=== PATIENT | female | born 1960 | race Caucasian/White ===

== ENCOUNTER 2017-05-09 19:52 | Inpatient (IN) ==
[2017-05-09] MEDS ORDERED: 0.9 % Sodium Chloride 500 ML IVC ONE (20:08)
[2017-05-09 20:17] LABS: Basophils % 0.1 %; Eosinophils # 0.1 K/mcL (0.0-0.6); Eosinophils % 0.7 %; Hematocrit 42.9 % (35.3-44.9); Hemoglobin 14.2 g/dL (11.5-15.4); Immature Granulocytes % 0.6 % (0-4); Lymphocytes # 0.5 K/mcL (0.6-4.6); Lymphocytes % 2.8 %; Mean Corpuscular HGB Conc 33.1 g/dL (31.6-35.5); Mean Corpuscular Volume 87.6 fL (83.0-100.0); Mean Platelet Volume 9.9 fL (9.4-12.4); Monocytes # 0.8 K/mcL (0.0-1.3); Monocytes % 4.9 %; Neutrophils # 14.7 K/mcL (1.6-8.9); Platelet Count 252 K/mcL (140-400); Red Cell Distribution Width 13.4 % (11.5-14.5); Segmented Neutrophils % 90.9 %
[2017-05-09] MEDS ORDERED: methylPREDNISolone 125 MG/2 ML VIAL IVP ONE (20:23)
[2017-05-09] MEDS ORDERED: Ipratropium/Albuterol Neb 3 ML IH ONE (20:23)
[2017-05-09 20:25] LABS: INR 1.1; Prothrombin Time 12.2 Seconds (9.4-12.1)
--- NOTE | 2017-05-09 20:27 | Emergency Department Note ---
Disposition Clinical Impression: COPD exacerbation Pneumonia Qualifiers: Pneumonia type: due to unspecified organism Laterality: unspecified laterality Lung location: unspecified part of lung Qualified Code(s): J18.9 - Pneumonia, unspecified organism Disposition: Admitted As Inpatient Condition: Good Forms: Work/School Release, ED Satisfaction Letter Time of Disposition: 22:16 General Adult HPI - General Chief complaint: ED General Medical Stated complaint: multiple complaints Time Seen by Provider: 05/09/17 19:55 Source: patient, EMS Limitations: no limitations Nursing Notes Reviewed: Yes Vital Signs Reviewed: Yes - History of Present Illness HPI Narrative: 56 year old female presents to the ED with complaints of fever of 102F at home with chills with a productive cough and nausea without vomitting and states that she was seen here on 05/07 for a left cardiac catherization secondary to ACS symptoms and tachycardia. APtinet states that she has not been around other ill family or friends and states that she is havign increased chest discomfort that radiates into her epigastrium and that the areas that she recieved lovenox shots are starting to pain as well. Ricci states that the cough is a little worse than her baseline cough and that she is long time smoker and quit 5 days ago and that she does feel a bit increased wheezes and has inceased her treatments at home. Pain Scale: 6 - Related Data Home Medications Medication Instructions Recorded Confirmed Albuterol Neb [Proventil Neb] 2.5 mg IH Q6H PRN 05/04/17 05/09/17 Aspirin [Lo-Dose Aspirin EC] 81 mg PO DAILY 05/04/17 05/09/17 Calcium Carbonate/Vitamin D3 1 tab PO DAILY 05/04/17 05/09/17 [Calcium 500+D Tablet Chew] Dapsone 100 mg PO DAILY 05/04/17 05/09/17 Levothyroxine Sodium [Levoxyl] 125 mcg PO DAILY 05/04/17 05/09/17 Loratadine [Claritin] 10 mg PO DAILY 05/04/17 05/09/17 Ranitidine HCl [Heartburn Relief] 150 mg PO BID 05/04/17 05/09/17 predniSONE [PredniSONE] See Taper PO DAILY 05/09/17 05/09/17 Previous Rx's Medication Instructions Recorded Lisinopril [Zestril] 2.5 mg PO DAILY #30 tab 05/07/17 Metoprolol [Lopressor] 25 mg PO BID #60 tab 05/07/17 Nicotine Patch [Nicoderm] 14 mg TD DAILY #28 patch 05/07/17 Nitrofurantoin (BID) [Macrobid] 100 mg PO BIDWM #10 cap 05/07/17 Simvastatin [Zocor] 10 mg PO HS #30 tab 05/07/17 Allergies Allergy/AdvReac Type Severity Reaction Status Date / Time Penicillins Allergy Swelling Verified 07/11/16 04:38 of Lip/Tongue/Throat Sulfa (Sulfonamide Allergy Hives Verified 07/11/16 04:38 Antibiotics) Constitutional: Reports: fever, chills, weakness. Denies: weight change Eyes: Denies: eye pain, eye discharge, vision change ENT ED: Denies: ear pain, throat pain, dental pain, hearing loss, epistaxis, congestion, dysphagia Cardiovascular: Reports: chest pain. Denies: palpitations, dyspnea on exertion , edema, syncope Respiratory: Reports: cough, dyspnea, wheezes, sputum production. Denies: hemoptysis, stridor Gastrointestinal: Denies: abdominal pain, nausea, vomiting, diarrhea, constipation, hematemesis, melena, hematochezia Genitourinary: Denies: dysuria, frequency, hematuria, discharge Musculoskeletal: Denies: back pain, neck pain, arthralgia, myalgia Integumentary: Denies: rash, abrasion, lesions Neurological: Denies: headache, weakness, numbness, paresthesias, confusion, abnormal gait, vertigo Psychiatric: Denies: anxiety, depression, suicidal thoughts, homicidal thoughts , auditory hallucinations, visual hallucinations Endocrine: Denies: fatigue Hematological/Lymphatic: Denies: easy bleeding, easy bruising Allergic/Immunologic: Denies: facial swelling, urticaria Past Medical History - Past Medical History Medical history: Reports: asthma, GERD, hypertension, thyroid disease Surgical history: Reports: , hysterectomy Psychiatric history: Reports: anxiety, panic disorder - Social History Smoking Status: Former smoker Smokeless Tobacco Status: No Alcohol use: Reports: none Drug use: Reports: none Physical Exam - General Limitations: no limitations General appearance: alert, in no apparent distress - Head Head exam: atraumatic, normocephalic, normal inspection - Eye Eye exam: Present: normal appearance, PERRL, EOMI - Expanded Eye Exam Pupils: Left: reactive - ENT ENT exam: normal exam, normal oropharynx, mucous membranes moist - Expanded ENT Exam External ear exam: Present: normal external inspection Mouth exam: Present: normal external inspection Teeth exam: Present: normal inspection Throat exam: Present: normal inspection - Neck Neck exam: Present: normal inspection, full ROM, trachea midline - Chest Chest inspection: Present: normal inspection, symmetric chest wall rise - Respiratory Respiratory exam: Present: wheezes - Cardiovascular Cardiovascular exam: Present: normal rhythm, tachycardia, normal heart sounds - Abdominal Exam Abdominal exam: Present: soft, Non-Tender, other (lovenox ecchymosis on mutliple areas of her abdomen; no active bleeding). Absent: tenderness, distention, guarding, rebound, rigidity - Extremities Exam Extremities exam: Present: normal inspection, full ROM. Absent: tenderness, pedal edema - Expanded Upper Extremity Exam Shoulder exam: Present: normal inspection, full ROM Arm exam: Present: normal inspection, full ROM Elbow exam: Present: normal inspection, full ROM Forearm/Wrist exam: Present: normal inspection, full ROM Hand exam: Present: normal inspection, full ROM Vascular exam: Normal: capillary refill, radial pulse - Expanded Lower Extremity Exam Hip/Pelvis exam: Present: normal inspection, full ROM Upper leg exam: Present: normal inspection, full ROM Knee exam: Present: normal inspection, full ROM Lower leg exam: Present: normal inspection, full ROM Ankle exam: Present: normal inspection, full ROM Foot/toe exam: Present: normal inspection, full ROM Neurovascular/Tendon exam: Absent: motor deficit, sensory deficit, tendon deficit - Back Exam Back exam: Present: normal inspection, full ROM. Absent: tenderness - Neurological Exam Neurological exam: Present: alert, oriented X3 - Expanded Neurological Exam Patient oriented to: Present: person, place, time Coma Scale Eye Opening: Spontaneous Coma Scale Motor Response: Obeys Commands Coma Scale Verbal Response: Oriented Coma Scale Total: 15 - Psychiatric Psychiatric exam: Present: normal affect, normal mood - Skin Skin exam: Present: warm, dry, intact, normal color Course Course Narrative: we will start sepsis workup as my clincal susupicion is that it comes from the pulmonary source, although we will obtain a CTA chest to rue out PE. (+) SIRS with tachycardia and fever - Consultations Consultation #1: discussed case with hospitalist Marina and she accepts patient for admission. Time: 22:15 Vital Signs Temperature 100.0 F H 05/09/17 19:55 Pulse Rate 109 05/09/17 19:55 Respiratory Rate 18 05/09/17 19:55 Blood Pressure 131/75 05/09/17 19:55 O2 Sat by Pulse Oximetry 95 05/09/17 19:55 Temperature 100.0 F H 05/09/17 19:55 Pulse Rate 95 05/09/17 21:48 Respiratory Rate 18 05/09/17 21:48 Blood Pressure 93/52 05/09/17 21:48 O2 Sat by Pulse Oximetry 96 05/09/17 21:48 Oxygen Delivery Oxygen Delivery Room Air Medical Decision Making - Lab Data Result diagrams: 05/09/17 20:06 05/09/17 20:06 Lab Results 05/09/17 05/09/17 05/09/17 Range/Units 20:06 20:06 20:06 WBC (4.3-11.1) K/mcL RBC (3.82-4.97) M/mcL Hgb (11.5-15.4) g/dL Hct (35.3-44.9) % MCV (83.0-100.0) fL MCH (28.0-33.3) pg MCHC (31.6-35.5) g/dL RDW (11.5-14.5) % Plt Count (140-400) K/mcL MPV (9.4-12.4) fL Immature Gran % (0-4) % Seg Neutrophils % % Lymphocytes % % Monocytes % % Eosinophils % % Basophils % % Neutrophils # (1.6-8.9) K/mcL Lymphocytes # (0.6-4.6) K/mcL Monocytes # (0.0-1.3) K/mcL Eosinophils # (0.0-0.6) K/mcL Basophils # (0.0-0.2) K/mcL PT 12.2 H (9.4-12.1) Seconds INR 1.1 APTT 27.3 (26.0-36.0) Seconds Sodium 134 L (136-145) mEq/L Potassium 4.0 (3.5-4.5) mEq/L Chloride 102 (98-109) mEq/L Carbon Dioxide 23 (19-29) mEq/L BUN 18 (7-20) mg/dL Creatinine 0.96 (0.57-1.11) mg/dL Est GFR ( Amer) > 60 (> 60) Est GFR (Non-Af Amer) > 60 (> 60) BUN/Creatinine Ratio 19 (6-26) Glucose 94 (70-99) mg/dL Calculated Osmolality 280 (280-300) Lactic Acid (0.5-2.2) mmol/L Calcium 9.1 (8.6-10.8) mg/dL Phosphorus (2.3-4.7) mg/dL Magnesium (1.6-2.6) mg/dL Total Bilirubin 1.4 H (0.2-1.2) mg/dL Direct Bilirubin 0.7 H (0.0-0.5) mg/dL Indirect Bilirubin 0.7 (0.0-1.2) mg/dL AST 22 (5-34) Units/L ALT 41 (0-55) Units/L Alkaline Phosphatase 116 (38-126) Units/L Troponin I (0-0.03) ng/mL B-Natriuretic Peptide 77 (0-100) pg/mL Serum Total Protein 7.4 (6.0-8.3) g/dL Albumin 3.4 L (3.5-5.0) g/dL Globulin 4.0 H (2.4-3.5) g/dL Albumin/Globulin Ratio 0.9 L (1.1-2.2) Lipase < 10 (8-78) Units/L Urine Color (Yellow) Urine Clarity (Clear) Urine pH (5.0-8.0) pH Units Ur Specific [place] (1.010-1.025) Urine Protein (Neg-Trace) mg/dL Urine Glucose (UA) (Normal) mg/dL Urine Ketones (Negative) mg/dL Urine Blood (Negative) Urine Nitrite (Negative) Urine Bilirubin (Negative) Urine Urobilinogen (Normal) mg/dL Ur Leukocyte Esterase (Negative) Urine Microscopic RBC (0-3) per hpf Urine Microscopic WBC (0-3) per hpf Ur Squamous Epith Cells (None-Few) per lpf Urine Bacteria (None-Few) per hpf Hyaline Casts (None-Few) per lpf Ur Culture Indicated? (NO) 05/09/17 05/09/17 05/09/17 Range/Units 20:06 20:06 20:06 WBC 16.2 H (4.3-11.1) K/mcL RBC 4.90 (3.82-4.97) M/mcL Hgb 14.2 D (11.5-15.4) g/dL Hct 42.9 (35.3-44.9) % MCV 87.6 (83.0-100.0) fL MCH 29.0 (28.0-33.3) pg MCHC 33.1 (31.6-35.5) g/dL RDW 13.4 (11.5-14.5) % Plt Count 252 (140-400) K/mcL MPV 9.9 (9.4-12.4) fL Immature Gran % 0.6 (0-4) % Seg Neutrophils % 90.9 % Lymphocytes % 2.8 % Monocytes % 4.9 % Eosinophils % 0.7 % Basophils % 0.1 % Neutrophils # 14.7 H (1.6-8.9) K/mcL Lymphocytes # 0.5 L (0.6-4.6) K/mcL Monocytes # 0.8 (0.0-1.3) K/mcL Eosinophils # 0.1 (0.0-0.6) K/mcL Basophils # 0.0 (0.0-0.2) K/mcL PT (9.4-12.1) Seconds INR APTT (26.0-36.0) Seconds Sodium (136-145) mEq/L Potassium (3.5-4.5) mEq/L Chloride (98-109) mEq/L Carbon Dioxide (19-29) mEq/L BUN (7-20) mg/dL Creatinine (0.57-1.11) mg/dL Est GFR ( Amer) (> 60) Est GFR (Non-Af Amer) (> 60) BUN/Creatinine Ratio (6-26) Glucose (70-99) mg/dL Calculated Osmolality (280-300) Lactic Acid 1.2 (0.5-2.2) mmol/L Calcium (8.6-10.8) mg/dL Phosphorus (2.3-4.7) mg/dL Magnesium (1.6-2.6) mg/dL Total Bilirubin (0.2-1.2) mg/dL Direct Bilirubin (0.0-0.5) mg/dL Indirect Bilirubin (0.0-1.2) mg/dL AST (5-34) Units/L ALT (0-55) Units/L Alkaline Phosphatase (38-126) Units/L Troponin I 0.01 (0-0.03) ng/mL B-Natriuretic Peptide (0-100) pg/mL Serum Total Protein (6.0-8.3) g/dL Albumin (3.5-5.0) g/dL Globulin (2.4-3.5) g/dL Albumin/Globulin Ratio (1.1-2.2) Lipase (8-78) Units/L Urine Color (Yellow) Urine Clarity (Clear) Urine pH (5.0-8.0) pH Units Ur Specific [place] (1.010-1.025) Urine Protein (Neg-Trace) mg/dL Urine Glucose (UA) (Normal) mg/dL Urine Ketones (Negative) mg/dL Urine Blood (Negative) Urine Nitrite (Negative) Urine Bilirubin (Negative) Urine Urobilinogen (Normal) mg/dL Ur Leukocyte Esterase (Negative) Urine Microscopic RBC (0-3) per hpf Urine Microscopic WBC (0-3) per hpf Ur Squamous Epith Cells (None-Few) per lpf Urine Bacteria (None-Few) per hpf Hyaline Casts (None-Few) per lpf Ur Culture Indicated? (NO) 05/09/17 05/09/17 Range/Units 20:06 21:40 WBC (4.3-11.1) K/mcL RBC (3.82-4.97) M/mcL Hgb (11.5-15.4) g/dL Hct (35.3-44.9) % MCV (83.0-100.0) fL MCH (28.0-33.3) pg MCHC (31.6-35.5) g/dL RDW (11.5-14.5) % Plt Count (140-400) K/mcL MPV (9.4-12.4) fL Immature Gran % (0-4) % Seg Neutrophils % % Lymphocytes % % Monocytes % % Eosinophils % % Basophils % % Neutrophils # (1.6-8.9) K/mcL Lymphocytes # (0.6-4.6) K/mcL Monocytes # (0.0-1.3) K/mcL Eosinophils # (0.0-0.6) K/mcL Basophils # (0.0-0.2) K/mcL PT (9.4-12.1) Seconds INR APTT (26.0-36.0) Seconds Sodium (136-145) mEq/L Potassium (3.5-4.5) mEq/L Chloride (98-109) mEq/L Carbon Dioxide (19-29) mEq/L BUN (7-20) mg/dL Creatinine (0.57-1.11) mg/dL Est GFR ( Amer) (> 60) Est GFR (Non-Af Amer) (> 60) BUN/Creatinine Ratio (6-26) Glucose (70-99) mg/dL Calculated Osmolality (280-300) Lactic Acid (0.5-2.2) mmol/L Calcium (8.6-10.8) mg/dL Phosphorus 3.1 (2.3-4.7) mg/dL Magnesium 1.9 (1.6-2.6) mg/dL Total Bilirubin (0.2-1.2) mg/dL Direct Bilirubin (0.0-0.5) mg/dL Indirect Bilirubin (0.0-1.2) mg/dL AST (5-34) Units/L ALT (0-55) Units/L Alkaline Phosphatase (38-126) Units/L Troponin I (0-0.03) ng/mL B-Natriuretic Peptide (0-100) pg/mL Serum Total Protein (6.0-8.3) g/dL Albumin (3.5-5.0) g/dL Globulin (2.4-3.5) g/dL Albumin/Globulin Ratio (1.1-2.2) Lipase (8-78) Units/L Urine Color Dark Yellow (Yellow) Urine Clarity Clear (Clear) Urine pH 6.0 (5.0-8.0) pH Units Ur Specific [place] > 1.030 H (1.010-1.025) Urine Protein 30 H (Neg-Trace) mg/dL Urine Glucose (UA) Normal (Normal) mg/dL Urine Ketones Negative (Negative) mg/dL Urine Blood Negative (Negative) Urine Nitrite Negative (Negative) Urine Bilirubin Small H (Negative) Urine Urobilinogen Normal (Normal) mg/dL Ur Leukocyte Esterase Negative (Negative) Urine Microscopic RBC 3-5 H (0-3) per hpf Urine Microscopic WBC 5-15 H (0-3) per hpf Ur Squamous Epith Cells Many H (None-Few) per lpf Urine Bacteria None Seen (None-Few) per hpf Hyaline Casts None Seen (None-Few) per lpf Ur Culture Indicated? YES A (NO) - EKG Data EKG #1 EKG attestation: Yes I reviewed and interpreted this EKG. EKG results narrative: sinus tachycardia with rate of 106. NO STEMI. shortened [place] intervals. no change from old ekg of 05/05/17
[2017-05-09 20:28] LABS: Activated Partial Thrombo Time 27.3 Seconds (26.0-36.0)
[2017-05-09] MEDS ORDERED: Levofloxacin 750 MG/150 ML 750 MG/150 ML BAG IVPB ONE (20:30)
[2017-05-09 20:33] LABS: Alanine Aminotransferase 41 Units/L (0-55); Albumin 3.4 g/dL (3.5-5.0); Albumin/Globulin Ratio 0.9 (1.1-2.2); Alkaline Phosphatase 116 Units/L (38-126); Aspartate Amino Transferase 22 Units/L (5-34); BUN/Creatinine Ratio 19 (6-26); Bilirubin,Direct 0.7 mg/dL (0.0-0.5); Bilirubin,Indirect 0.7 mg/dL (0.0-1.2); Bilirubin,Total 1.4 mg/dL (0.2-1.2); Blood Urea Nitrogen 18 mg/dL (7-20); Calcium 9.1 mg/dL (8.6-10.8); Carbon Dioxide 23 mEq/L (19-29); Chloride 102 mEq/L (98-109); Glucose 94 mg/dL (70-99); Lipase < 10 Units/L (8-78); Osmolality,Calculated 280 (280-300); Sodium 134 mEq/L (136-145); Total Protein 7.4 g/dL (6.0-8.3); eGFR For African Americans > 60 (> 60); eGFR For Non-African Americans > 60 (> 60)
[2017-05-09] MEDS: 0.9 % Sodium Chloride 1,000 ML IVC SCH ×2 (20:33→23:25)
[2017-05-09 20:35] LABS: Magnesium 1.9 mg/dL (1.6-2.6); Phosphorous 3.1 mg/dL (2.3-4.7)
[2017-05-09] MEDS ORDERED: Ondansetron 4 MG/2 ML VIAL IVP ONE (20:44)
[2017-05-09 21:47] LABS: Bilirubin,Urine Small (Negative); Blood,Urine Negative (Negative); Clarity,Urine Clear (Clear); Color,Urine Dark Yellow (Yellow); Glucose,Urine (UA) Normal (Normal); Ketones,Urine Negative (Negative); Leukocyte Esterase,Urine Negative (Negative); Nitrite,Urine Negative (Negative); Protein,Urine 30 mg/dL (Neg-Trace); Specific Gravity,Urine > 1.030 (1.010-1.025); Urobilinogen,Urine Normal (Normal)
[2017-05-09 21:49] LABS: Bacteria,Urine None Seen per hpf (None-Few); Squamous Epithelial Cell,Urine Many per lpf (None-Few)
[2017-05-09 22:01] LABS: Hyaline Casts,Urine None Seen per lpf (None-Few)
[2017-05-09] MEDS ORDERED: Ondansetron 4 MG/2 ML VIAL IVP PRN (23:33)
[2017-05-09] MEDS ORDERED: Naloxone 0.4 MG/ML INJ IVP PRN (23:33)
[2017-05-09] MEDS ORDERED: *HR* OxyCODONE Immed Rel 5 MG TABLET PO PRN (23:33)
[2017-05-09] MEDS ORDERED: Albuterol 2.5 MG/3 ML NEBULIZER IH PRN (23:36)
--- NOTE | 2017-05-09 23:42 | Internal Med History&Physical ---
<Mesfin Diaz - Last Filed: 05/10/17 00:43> Date of Encounter: 05/10/17 Time of Encounter: 23:42 Assessment and Plan (1) Fever Current visit: Yes Status: Acute 56 y/o female presents with cc of fever of 102 states she had gradual onset of frontal headache described as pressure like with nausea, photophobia, neck pain, and low back pain denies confusion, GCS 15 negative mayra hawley and marleen recent [facility] [place] 05/07/17: access site right radial artery without erythema or discharge. Pain with palpation Neuro exam nonfocal and nonlateralizing reports 2 weeks of chest congestion and productive cough which has improved denies sick contacts patient treated for UTI on nitrofurantoin wbc [address] abdomen, pelvis negative for any acute changes, no evidence of PE or dissection Lipase WNL etiology: post procedural, UTI, plan: IV ciprofloxacin IVF blood culture, urine culture GI prophylaxis Qualifiers: Fever type: unspecified Qualified Code(s): R50.9 - Fever, unspecified (2) Asthma Current visit: Yes Status: Acute during previous admission patient was treated for asthma exacerbation. She was discharged with predisone taper on 05/07 states she has had productive cough for two weeks and sob. This has improved in the last week not requiring supplemental oxygen. 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 EKG normal sinus rhythm Plan: Continue metoprolol, cardiac telemetry (4) Tobacco abuse Current visit: Yes Status: Resolved Patient states she has decided to quit tobacco smoking. She has quit 5 days ago. Patient was congratulated on this suspicion. Plan: Continue nicotine patch. (5) UTI (urinary tract infection) Current visit: Yes Status: Suspected during previous visit patient diagnosed with uTI and discharged on nitrofurantion x5 days denies dysuria, hematuria, frequency plan: ciprofloxacin Qualifiers: Urinary tract infection type: acute cystitis Hematuria presence: without hematuria Qualified Code(s): N30.00 - Acute cystitis without hematuria (6) Constipation Current visit: Yes Status: Acute patient states she has not had BM for one week CT abdomen pelvis negative for obstruction Plan: docusate 100mg BID prn Qualifiers: Constipation type: other constipation type Qualified Code(s): K59.09 - Other constipation (7) DVT prophylaxis Current visit: Yes Status: Acute Heparin subcutaneous (8) CAD (coronary artery disease) Current visit: Yes Status: Acute denies chest pain recent [facility] [place] 05/07/17 There was a 30% stenosis in the Mid LAD, 50% stenosis in the Mid Circumflex. 50% stenosis in the Mid RCA. EKG sinus tachycardia rate 106 w/o ST elevation or depression trop WNL Plan: She was sent home with asa, statin, and bb. Qualifiers: Coronary Disease-Associated Artery/Lesion type: [place] artery [place] vs. transplanted heart: [place] heart Associated angina: without angina Qualified Code(s): I25.10 - Atherosclerotic heart disease of [place] coronary artery without angina pectoris (9) Headache Current visit: Yes Status: Acute frontal headache with nausea photophobia acute onset w/o mental status changes neuro exam non-focal non lateralizing plan: migraine cocktail Qualifiers: Headache type: tension-type Headache chronicity pattern: acute headache Intractability: not intractable Qualified Code(s): G44.209 - Tension-type headache, unspecified, not intractable Internal Medicine - H&P: HPI Chief complaint: fever History of present illness: Ms. Colunga is a 56 year old female cc of fever. Patient states yesterday she was lying in bed when she had gradual onset of frontal headache, which is pressure-like, nonradiating associated with nausea, photophobia, dull neck pain , weakness. Denied confusion, mental status changes, passing out, vomiting. Patient states she has never had this type of headache before. Denies relieving factors for headache. Thereafter patient started having bilateral lower abdominal pain and low back pain described as dull accompanied by bloating. Patient checked her temperature which was 102 at home. She complained of intense chills requiring multiple blankets. Denies sick contacts. Reports being constipated for the last week and has not had a bowel movement for the last week. Reports for the last 2 weeks she has congestion, productive cough with white sputum which has improved with nebulizer treatments and her recent decision to quit smoking 5 days ago. Patient had a recent left heart catheter at [facility] which she was discharged from on May 07 and was found to have mild coronary artery disease which is managed medically with aspirin, statin, metoprolol. Past Med Surg Social Fam HX - Past Medical History Medical history: asthma, GERD, hypertension, thyroid disease Psychiatric history: anxiety, panic disorder - Past Surgical History Surgical History: , hysterectomy - Social History Smoking Status: Former smoker Smokeless Tobacco Status: No Alcohol use: none Drug use: none - Family History Mother Hx Family Cardiac Disorders: No Hx Family Respiratory Disorders: Yes Father Hx Family Cardiac Disorders: No Internal Medicine - H&P: Meds Albuterol Neb [Proventil Neb] 2.5 mg IH Q6H PRN 05/04/17 [History] Aspirin [Lo-Dose Aspirin EC] 81 mg PO DAILY 05/04/17 [History] Calcium Carbonate/Vitamin D3 [Calcium 500+D Tablet Chew] 1 tab PO DAILY [History] Dapsone 100 mg PO DAILY 05/04/17 [History] Levothyroxine Sodium [Levoxyl] 125 mcg PO DAILY 05/04/17 [History] Loratadine [Claritin] 10 mg PO DAILY 05/04/17 [History] Ranitidine HCl [Heartburn Relief] 150 mg PO BID 05/04/17 [History] Lisinopril [Zestril] 2.5 mg PO DAILY #30 tab 05/07/17 [Rx] Metoprolol [Lopressor] 25 mg PO BID #60 tab 05/07/17 [Rx] Nicotine Patch [Nicoderm] 14 mg TD DAILY #28 patch 05/07/17 [Rx] Nitrofurantoin (BID) [Macrobid] 100 mg PO BIDWM #10 cap 05/07/17 [Rx] Simvastatin [Zocor] 10 mg PO HS #30 tab 05/07/17 [Rx] predniSONE [PredniSONE] See Taper PO DAILY 05/09/17 [History] 3 Allergy/AdvReac Type Severity Reaction Status Date / Time Penicillins Allergy Swelling Verified 07/11/16 04:38 of Lip/Tongue/Throat Sulfa (Sulfonamide Allergy Hives Verified 07/11/16 04:38 Antibiotics) All Systems PM: A 10-system review of systems was performed and is negative for pertinent findings except as documented above in the HPI. Review of systems: Constitutional: Reports fevers, chills, weakness HEENT: Port[place] headache, blurry vision, neck pain. Denies rhinorrhea, sore throat Heart: Denies chest pain and reports palpitations Lungs: Reports shortness of breath, productive cough Abdomen: Ports lower abdominal pain with nausea. Reports constipation. denies vomiting Back: Reports low back pain Kidney: Denies dysuria, hematuria Skin: Denies rash, open wounds or sores Extremities: Denies swelling, pain Neuro: Denies numbness, and tingling - Constitutional Vitals: Temp Pulse Resp BP Pulse Ox 97.5 F L 86 15 124/62 98 05/09/17 23:15 05/09/17 23:15 05/09/17 23:15 05/09/17 23:15 05/09/17 23:15 - Other Additional findings: General: Pleasant female in Moderate distress, diaphoretic HEENT: Head atraumatic, normocephalic, EOMI, PERRLA, absent nuchal rigidity, neck not tender to palpation absent Lymphadenopathy, Moist Mucous Membranes, Heart: Regular rate and rhythm with no murmur Lungs: Bilateral basilar crackles otherwise clear (s/p duoneb treatment) Abdomen: Soft nontender, nondistended positive bowel sounds Extremities: Absent pedal edema, Skin: Absent rash, absent (. Left heart catheter insertion site on right wrist without erythema or discharge but painful with palpation. Back: Nontender to palpation Neuro: Cranial nerves II through XII intact, sensation equal bilaterally, strength upper and lower extremity 5/5, alert oriented 3 Vascular: Pedal and radial pulses 2 out of 4 Internal Med - H&P Results - Labs CBC & Chem 7: 05/09/17 20:06 05/09/17 20:06 <Shantel Wilde - Last Filed: 05/10/17 04:28> Date of Encounter: 05/10/17 Time of Encounter: 01:00 Internal Medicine - H&P: HPI History of present illness: Ms. Colunga is a 56 year old female All Systems PM: A 10-system review of systems was performed and is negative for pertinent findings except as documented above in the HPI. - Constitutional Vitals: Temp Pulse Resp BP Pulse Ox 97.5 F L 86 15 124/62 98 05/09/17 23:15 05/09/17 23:15 05/09/17 23:15 05/09/17 23:15 05/09/17 23:15 Internal Med - H&P Results - Labs CBC & Chem 7: 05/09/17 20:06 05/09/17 20:06 - Attending Attestation I examined this patient and my medical decision-making was reviewed with the Resident Physician. I agree with the documented findings, disposition and treatment plan as described except to the extent set forth below. Ms Colunga is as 56 yo female who presents with SIRS/fever featurses. Reported fever 101 at home, some chills associated. Has central, non-focal belly ache and T-L spine ache with radiation up to the neck. Associated with headache front and back. There were reports of photophobia but she said that she has always been sensitive to light. CTA, CT A/P were unremarkable ROS 14 point review of systems reviewed as best as possible given presentation. Pertinent positive or negative as per HPI or otherwise reviewed as negative General - AAO x 3 Psych - Appropriate affect/speech. No agitation Eyes - DIANNA. Eye lids intact. No scleral icterus Heart - Sinus. RRR. S1 and S2 present. No added HS/murmurs appreciated. No elevated JVD appreciated. Trace edema Lung - Adequate air entry b/l, No crackes/wheezes appreciated GI - Soft, no guarding or rigidity. No hepatosplenomegaly/ascites. BS+ - No CVA/suprapubic tenderness or palpable bladder distension Skin - Intact. No rash/petechiae/ecchymosis. Warm extremities MSK -T/upper L spine back pain Sepsis - empiric IV cipro for now - recently discharge on nitro for empiric UTI - source uncertain. Await blood cx, urine cx - doubt meningitis at current. Will watch for now. If worsen, may consider escalating but she looks stable and w/o nuchal rigidity.K and B signs were negative. Chronic illnesses Asthma WPW Tobacco abuse Constipation
[2017-05-09] MEDS ORDERED: 0.9 % Sodium Chloride 1,000 ML IVC SCH (23:45)
[2017-05-10] MEDS ORDERED: Acetaminophen/Butalbital/CaffeineTABLET PO PRN (00:46)
[2017-05-10] MEDS ORDERED: Vancomycin 1,500 MG in D5% in Water 250 ML IVPB ONE (01:00)
[2017-05-10] MEDS: *HR* Heparin 5,000 UNIT/ML VIAL SQ SCH ×3 (05:00→21:50)
[2017-05-10 05:16] LABS: Basophils % 0.1 %; Hematocrit 36.5 % (35.3-44.9); Immature Granulocytes % 0.4 % (0-4); Lymphocytes # 0.5 K/mcL (0.6-4.6); Lymphocytes % 4.1 %; Mean Corpuscular HGB Conc 32.9 g/dL (31.6-35.5); Mean Corpuscular Hemoglobin 29.1 pg (28.0-33.3); Mean Corpuscular Volume 88.4 fL (83.0-100.0); Mean Platelet Volume 10.3 fL (9.4-12.4); Monocytes # 0.1 K/mcL (0.0-1.3); Monocytes % 0.6 %; Neutrophils # 10.8 K/mcL (1.6-8.9); Platelet Count 237 K/mcL (140-400); Red Blood Count 4.13 M/mcL (3.82-4.97); Red Cell Distribution Width 13.5 % (11.5-14.5); Segmented Neutrophils % 94.8 %
[2017-05-10 05:26] LABS: BUN/Creatinine Ratio 19 (6-26); Blood Urea Nitrogen 18 mg/dL (7-20); Calcium 8.3 mg/dL (8.6-10.8); Carbon Dioxide 20 mEq/L (19-29); Chloride 108 mEq/L (98-109); Glucose 236 mg/dL (70-99); Osmolality,Calculated 294 (280-300); Sodium 137 mEq/L (136-145); eGFR For African Americans > 60 (> 60); eGFR For Non-African Americans > 60 (> 60)
[2017-05-10] MEDS ORDERED: Nitrofurantoin (BID) 100 MG CAPSULE PO SCH (08:00)
[2017-05-10] MEDS: Aspirin Enteric Coated 81 MG Tablet PO SCH (08:27)
[2017-05-10] MEDS: Nicotine 14 MG PATCH.TD24 TD SCH (08:28)
[2017-05-10] MEDS: predniSONE 10 MG TABLET PO SCH (08:28)
[2017-05-10] MEDS ORDERED: Vancomycin 1,500 MG in D5% in Water 250 ML IVPB STA (09:40)
[2017-05-10] MEDS ORDERED: Vancomycin 1,500 MG in D5% in Water 250 ML IVPB SCH ×2 (10:00→21:00)
--- NOTE | 2017-05-10 18:07 | Electrocardiograph Report ---
[place] [id number] Test Date: 2017-05-09 Pat Name: Vivian Colunga Department: 102 Room: 2NE30 Gender: F Quality Assistant: : 1960 Requested By: Denita Roque Order Number: [id number] Reading MD: Grisel Candelaria Measurements Intervals [place] Rate: 108 P: 67 [place]: 84 QRS: -8 QRSD: 100 T: 89 QT: 328 QTc: 392 Interpretive Statements SINUS TACHYCARDIA POSSIBLE LEFT ATRIAL ENLARGEMENT ARTIFACT LIMITS INTERPRETATION Electronically Signed On 05-10-2017 18:05:10 EDT by Grisel Candelaria
--- NOTE | 2017-05-10 18:09 | Electrocardiograph Report ---
[address] [place] [address] Test Date: 2017-05-09 Pat Name: Vivian Colunga Department: 102 Room: 2NE30 Gender: F Gambling Broker: : 1960 Requested By: Lizy Vásquez Order Number: [id number] Reading MD: Grisel Candelaria Measurements Intervals [place] Rate: 106 P: 64 AR: 105 QRS: -11 QRSD: 100 T: 92 QT: 329 QTc: 391 Interpretive Statements SINUS TACHYCARDIA WITH SHORT AR INTERVAL AND WPW PATTERN POSSIBLE INFERIOR MYOCARDIAL INFARCTION, PROBABLY OLD MODERATE T-WAVE ABNORMALITY, CONSIDER LATERAL ISCHEMIA Electronically Signed On 05-10-2017 18:07:36 EDT by Grisel Candelaria
--- NOTE | 2017-05-10 18:25 | Internal Med Progress Note ---
Date of Encounter: 05/10/17 Time of Encounter: 18:23 - Assessment and plan (1) Fever Current Visit: Yes Status: Acute Qualifiers: Fever type: unspecified Qualified Code(s): R50.9 - Fever, unspecified (2) UTI (urinary tract infection) Current Visit: Yes Status: Suspected Qualifiers: Urinary tract infection type: acute cystitis Hematuria presence: without hematuria Qualified Code(s): N30.00 - Acute cystitis without hematuria (3) COPD exacerbation Current Visit: Yes Status: Acute (4) CAD (coronary artery disease) Current Visit: Yes Status: Acute Qualifiers: Coronary Disease-Associated Artery/Lesion type: [place] artery [place] vs. transplanted heart: [place] heart Associated angina: without angina Qualified Code(s): I25.10 - Atherosclerotic heart disease of [place] coronary artery without angina pectoris (5) Headache Current Visit: Yes Status: Acute Qualifiers: Headache type: tension-type Headache chronicity pattern: acute headache Intractability: not intractable Qualified Code(s): G44.209 - Tension-type headache, unspecified, not intractable - Subjective Interval history: Mrs. Vivian booth was recently discharged from hospital. She was treated for UTI and was sent home on Macrobid. She has recently quit smoking and to has developed cough with whitish phlegm. Patient had a recent left heart catheter at [place] which she was discharged from on May 07 and was found to have mild coronary artery disease which is managed medically with aspirin, statin, metoprolol. She was presented with fever and headache neck pain and photophobia but for some reason admitting team did not do lumbar puncture. She has been started on IV Cipro. I have added vancomycin but since she had anaphylaxis to penicillins I could not add cephalosporin or meropenem. I guess her next choice is Avelox but have decided to consult infectious disease to see if neurological etiologies worked pursuing. Clinically she is quite unremarkable and does not have any signs of meningismus. I have asked her to use albuterol inhaler on regular basis now. - Constitutional Vitals: Temp Pulse Resp BP Pulse Ox 98.3 F 73 18 121/73 97 05/10/17 15:00 05/10/17 15:00 05/10/17 15:00 05/10/17 15:00 05/10/17 15:00 - Head Head exam: Present: atraumatic, normocephalic - Eye Eye exam: Present: PERRL, conjuntiva pink, sclera anicteric Pupils: Present: PERRL - Neck Neck exam general surgery: Present: supple, trachea midline. Absent: lymphadenopathy - Respiratory Respiratory exam: Present: CTAB. Absent: accessory muscle use, rales, rhonchi, wheezes - Cardiovascular Cardiovascular exam: Present: RRR, +S1, +S2. Absent: diastolic murmur, gallop, rubs, systolic murmur - GI/Abdominal GI/Abdominal exam: Present: normal bowel sounds, soft, no peritoneal signs. Absent: distended, tenderness - Extremities Exam Extremities exam: Present: warm, radial pulses palpable and symmetrical. Absent : calf tenderness, cyanotic, pedal edema - Neurological Exam Neurological exam: Present: CN II-XII intact, oriented X3, no focal deficits. Absent: pronater drift, facial droop, speech deficit - Skin Skin exam: Present: dry, intact Internal Medicine: Result - Labs CBC & Chem 7: 05/10/17 04:43 05/10/17 04:43 Labs: Short CBC 05/10/17 Range/Units 04:43 WBC 11.4 H (4.3-11.1) K/mcL Hgb 12.0 D (11.5-15.4) g/dL Hct 36.5 (35.3-44.9) % Plt Count 237 (140-400) K/mcL Neutrophils # 10.8 H (1.6-8.9) K/mcL BMP 05/10/17 04:43 Sodium 137 Potassium 4.0 Chloride 108 Carbon Dioxide 20 BUN 18 Creatinine 0.96 Glucose 236 H Calcium 8.3 L - ABG Interpretation ABG results: PT/INR, D-dimer PT 12.2 Seconds (9.4-12.1) H 05/09/17 20:06 Consult Discharge Plan - Plan Referrals: Erin Sumner DO [Resident] - 05/17/17 10:20 am
[2017-05-11] MEDS: *HR* Heparin 5,000 UNIT/ML VIAL SQ SCH ×2 (05:52→16:49)
--- NOTE | 2017-05-11 09:27 | Internal Med Progress Note ---
Date of Encounter: 05/11/17 Time of Encounter: 09:24 - Assessment and plan (1) Meningismus Current Visit: Yes Status: Acute Assessment and plan: Suspected meningitis versus meningismus. Patient has a history of 3 weeks of change in her voice, difficulty swallowing solid food items, sore throat, cough. She reports neck stiffness. However, no neck stiffness on examination. Kernig' s and Brudzinski's signs are negative. Suspect the patient may have a retropharyngeal abscess or pharyngitis as a cause of her meningismus. We will obtain a CT scan of the neck soft tissues with contrast stat. If the CT scan of the neck is negative, will obtain lumbar puncture by interventional radiology. It seems that there is no infectious disease coverage available. We will discontinue ID consult. Continue current antibiotics for now. Further antibiotic therapy and management to depend on the results of CT scan of the neck. Patient is high risk due to possible meningitis or retropharyngeal abscess which may require surgical intervention and/or intravenous antibody therapy. 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 (3) Hypertension Current Visit: Yes Status: Chronic Assessment and plan: Controlled blood pressure. Continue current medications. Qualifiers: Hypertension type: essential hypertension Qualified Code(s): I10 - Essential (primary) hypertension (4) Tobacco abuse Current Visit: Yes Status: Resolved - Subjective Interval history: 56 yo CF presents due to frontal headache, neck stiffness and fever of 101.5 F. Patient states that she has had difficulty swallowing solid food items over the past 3 weeks. She also reports a sore throat. She states that she has had cough with chest congestion over the past 3 weeks. With excessive coughing, she developed chest pain. She presented to the hospital last week for this complaint. She underwent left heart catheterization at that time. She was discharged on Sunday. She returned back to the hospital on Sunday due to fever of 101.5 degrees Fahrenheit. She states that she woke up in a pool of sweat before coming to the hospital. She also reported a headache on the front of her face, nose and both her eyes. She attributed this headache to her allergies. However, she states that her headaches are not usually accompanied by fevers. She also reports photophobia. She does report light sensitivity that occurs with her headache episodes. Currently, she denies any weakness in her arms or legs. She denies any history of seizures. She lives with her son who is 26 years old. She denies any sick contacts at home. She reports some nausea but denies any further vomiting. She continues to report chills which have been at night and which she had last night. She denies any double vision or blurry vision. Denies any diarrhea. She does report a change in her voice and states that her voice is hoarse. - Constitutional Vitals: Temp Pulse Resp BP Pulse Ox 98.1 F 72 15 131/79 96 05/11/17 06:53 05/11/17 06:53 05/11/17 06:53 05/11/17 06:53 05/11/17 06:53 Exam: Gen.: Lying in bed. Mild distress. Eyes: Pupils equal, round and reactive to light. Extraocular muscles intact. ENT: Moist mucous membranes. No oropharyngeal erythema or discharge. Chest: Clear to auscultation bilaterally. No adventitious sounds present. CVS: First and second heart sounds present. Regular rate and rhythm. Ejection systolic murmur present in the aortic area. Abdomen: Soft, nontender, obese. Bowel sounds present. No hepatosplenomegaly. Skin: No decubitus ulcers appreciated. SERVICE CLERK: No focal neuro deficits present. No neck stiffness. Kernig's and Brudzinski's signs are negative. Bilateral neck muscle stiffness is present. Internal Medicine: Result - Labs CBC & Chem 7: 05/10/17 04:43 05/10/17 04:43 - ABG Interpretation ABG results: PT/INR, D-dimer PT 12.2 Seconds (9.4-12.1) H 05/09/17 20:06 Consult Discharge Plan - Plan Referrals: Erin Sumner DO [Resident] - 05/17/17 10:20 am
[2017-05-11] MEDS: Aspirin Enteric Coated 81 MG Tablet PO SCH (11:22)
[2017-05-11] MEDS: predniSONE 10 MG TABLET PO SCH (11:22)
[2017-05-11] MEDS: Nicotine 14 MG PATCH.TD24 TD SCH (11:23)
[2017-05-11] MEDS ORDERED: diazePAM 5 MG TABLET PO ONE (12:04)
[2017-05-11 13:44] LABS: Red Blood Cell,CSF < 0.002 M/mcL
[2017-05-11 13:46] LABS: Appearance,CSF Clear (Clear)
[2017-05-11 14:08] LABS: Glucose,CSF 70 mg/dL (40-70); Total Protein,CSF 24 mg/dL (15-45)
[2017-05-11] MEDS ORDERED: Aminoglycoside Consult 1 EACH MC ONE (16:30)
[2017-05-12 03:22] LABS: Basophils % 0.2 %; Eosinophils # 0.1 K/mcL (0.0-0.6); Eosinophils % 0.6 %; Hematocrit 33.8 % (35.3-44.9); Immature Granulocytes % 0.3 % (0-4); Lymphocytes # 3.4 K/mcL (0.6-4.6); Lymphocytes % 31.1 %; Mean Corpuscular HGB Conc 32.5 g/dL (31.6-35.5); Mean Corpuscular Hemoglobin 29.6 pg (28.0-33.3); Mean Corpuscular Volume 90.9 fL (83.0-100.0); Mean Platelet Volume 10.6 fL (9.4-12.4); Monocytes # 0.8 K/mcL (0.0-1.3); Monocytes % 7.1 %; Neutrophils # 6.6 K/mcL (1.6-8.9); Platelet Count 246 K/mcL (140-400); Red Blood Count 3.72 M/mcL (3.82-4.97); Segmented Neutrophils % 60.7 %
[2017-05-12 03:34] LABS: Alanine Aminotransferase 88 Units/L (0-55); Albumin/Globulin Ratio 0.8 (1.1-2.2); Alkaline Phosphatase 97 Units/L (38-126); Aspartate Amino Transferase 44 Units/L (5-34); BUN/Creatinine Ratio 25 (6-26); Bilirubin,Total 0.4 mg/dL (0.2-1.2); Blood Urea Nitrogen 24 mg/dL (7-20); Calcium 8.6 mg/dL (8.6-10.8); Carbon Dioxide 26 mEq/L (19-29); Chloride 109 mEq/L (98-109); Globulin 3.2 g/dL (2.4-3.5); Glucose 104 mg/dL (70-99); Osmolality,Calculated 294 (280-300); Potassium 4.4 mEq/L (3.5-4.5); Sodium 140 mEq/L (136-145); eGFR For African Americans > 60 (> 60); eGFR For Non-African Americans > 60 (> 60)
[2017-05-12 03:35] LABS: Albumin 2.7 g/dL (3.5-5.0); Total Protein 5.9 g/dL (6.0-8.3)
[2017-05-12] MEDS: Aspirin Enteric Coated 81 MG Tablet PO SCH (09:56)
[2017-05-12] MEDS: predniSONE 10 MG TABLET PO SCH (09:57)
[2017-05-12] MEDS: Nicotine 14 MG PATCH.TD24 TD SCH (09:57)
--- NOTE | 2017-05-12 13:28 | Internal Med Progress Note ---
Date of Encounter: 05/12/17 Time of Encounter: 12:45 - Assessment and plan (1) Meningismus Current Visit: Yes Status: Resolved Assessment and plan: CT scan of the neck with contrast was negative for any retropharyngeal abscess. Lumbar punch was performed yesterday and the CSF fluid analysis is not consistent with viral or bacterial meningitis. Antibiotics have been discontinued. We will continue to monitor the patient for 24 more hours off antibiotics. If the patient continues to do well, likely discharge home tomorrow. We will provide referral for outpatient rheumatology if the patient is discharged tomorrow as there is a suspicion for systemic lupus. ALBERT and complements have been obtained yesterday. (2) WPW (Llqrf-Unpbjizqo-Pghhn syndrome) Current Visit: Yes Status: Chronic Assessment and plan: Stable. (3) Hypertension Current Visit: Yes Status: Chronic Assessment and plan: Stable blood pressure. Continue current medications. Qualifiers: Hypertension type: essential hypertension Qualified Code(s): I10 - Essential (primary) hypertension (4) Tobacco abuse Current Visit: Yes Status: Resolved - Subjective Interval history: Patient states that she is doing well. She has not had any chills overnight. Denies any headache episodes. Denies any nausea or vomiting. She is eager to be discharged home. - Constitutional Vitals: Temp Pulse Resp BP Pulse Ox 98.5 F 81 16 121/73 94 05/12/17 08:42 05/12/17 08:42 05/12/17 08:42 05/12/17 08:42 05/12/17 08:42 Exam: Gen.: Lying in bed. No acute distress. Chest: Clear to auscultation bilaterally. No adventitious sounds present. CVS: First and second heart sounds present. No murmurs, rubs or gallops. Abdomen: Soft, nontender, nondistended. Bowel sounds present. No hepatosplenomegaly. Internal Medicine: Result - Labs CBC & Chem 7: 05/12/17 03:04 05/12/17 03:04 Labs: Short CBC 05/12/17 Range/Units 03:04 WBC 10.8 (4.3-11.1) K/mcL Hgb 11.0 L (11.5-15.4) g/dL Hct 33.8 L (35.3-44.9) % Plt Count 246 (140-400) K/mcL Neutrophils # 6.6 (1.6-8.9) K/mcL BMP 05/12/17 03:04 Sodium 140 Potassium 4.4 Chloride 109 Carbon Dioxide 26 BUN 24 H Creatinine 0.96 Glucose 104 H Calcium 8.6 Liver Function 05/12/17 Range/Units 03:04 Total Bilirubin 0.4 (0.2-1.2) mg/dL AST 44 H (5-34) Units/L ALT 88 H (0-55) Units/L Alkaline Phosphatase 97 (38-126) Units/L Albumin 2.7 L D (3.5-5.0) g/dL - ABG Interpretation ABG results: PT/INR, D-dimer PT 12.2 Seconds (9.4-12.1) H 05/09/17 20:06 - Impressions Impressions Lumbar Puncture Fluoroscopy 05/11/17 11:04 IMPRESSION: Successful fluoroscopic-guided lumbar puncture. D/ / 05/11/2017 13:51:23 Kirby Drew MD / Tracey Jean-Baptiste Interpreting Provider: Kirby Drew MD Consult Discharge Plan - Plan Referrals: Erin Sumner DO [Resident] - 05/17/17 10:20 am
[2017-05-12] MEDS: *HR* Heparin 5,000 UNIT/ML VIAL SQ SCH ×2 (14:15→20:12)
[2017-05-13] MEDS: Acetaminophen 325 MG TABLET PO PRN ×2 (02:36→10:11)
[2017-05-13 04:08] LABS: Basophils % 0.1 %; Eosinophils # 0.1 K/mcL (0.0-0.6); Eosinophils % 0.6 %; Hemoglobin 11.3 g/dL (11.5-15.4); Immature Granulocytes % 0.4 % (0-4); Lymphocytes # 4.3 K/mcL (0.6-4.6); Lymphocytes % 29.6 %; Mean Corpuscular HGB Conc 31.4 g/dL (31.6-35.5); Mean Corpuscular Hemoglobin 28.3 pg (28.0-33.3); Mean Platelet Volume 10.7 fL (9.4-12.4); Monocytes # 0.9 K/mcL (0.0-1.3); Neutrophils # 9.2 K/mcL (1.6-8.9); Platelet Count 288 K/mcL (140-400); Red Cell Distribution Width 13.7 % (11.5-14.5); Segmented Neutrophils % 63.3 %
[2017-05-13 04:22] LABS: Alanine Aminotransferase 64 Units/L (0-55); Albumin 2.8 g/dL (3.5-5.0); Albumin/Globulin Ratio 0.9 (1.1-2.2); Alkaline Phosphatase 95 Units/L (38-126); Aspartate Amino Transferase 20 Units/L (5-34); BUN/Creatinine Ratio 21 (6-26); Blood Urea Nitrogen 17 mg/dL (7-20); Calcium 8.6 mg/dL (8.6-10.8); Carbon Dioxide 24 mEq/L (19-29); Chloride 107 mEq/L (98-109); Globulin 3.1 g/dL (2.4-3.5); Glucose 88 mg/dL (70-99); Osmolality,Calculated 289 (280-300); Sodium 139 mEq/L (136-145); Total Protein 5.9 g/dL (6.0-8.3); eGFR For African Americans > 60 (> 60); eGFR For Non-African Americans > 60 (> 60)
[2017-05-13 04:23] LABS: Bilirubin,Total 0.8 mg/dL (0.2-1.2)
[2017-05-13] MEDS: *HR* Heparin 5,000 UNIT/ML VIAL SQ SCH (04:49)
[2017-05-13 07:10] VITALS: BP 104/56
[2017-05-13] MEDS: Aspirin Enteric Coated 81 MG Tablet PO SCH (10:10)
[2017-05-13] MEDS: predniSONE 10 MG TABLET PO SCH (10:10)
[2017-05-13] MEDS: Nicotine 14 MG PATCH.TD24 TD SCH (10:11)
--- NOTE | 2017-05-13 13:30 | Discharge Summary ---
Date of Encounter: 05/13/17 Time of Encounter: 13:30 - Discharge Diagnosis (1) Meningismus Priority: Primary Status: Ruled-out (2) WPW (Zyjwo-Yzpupdcwk-Xzkyg syndrome) Priority: Secondary Status: Chronic (3) Hypertension Priority: Secondary Status: Chronic Qualifiers: Hypertension type: essential hypertension Qualified Code(s): I10 - Essential (primary) hypertension (4) Tobacco abuse Priority: Secondary Status: Chronic - Discharge Medications Prescriptions: Levofloxacin [Levaquin] 750 mg PO DAILY #5 tablet Omeprazole [PriLOSEC] 20 mg PO DAILY@0630 #10 Home Medications: Albuterol Neb [Proventil Neb] 2.5 mg IH Q6H PRN 05/04/17 [History] Aspirin [Lo-Dose Aspirin EC] 81 mg PO DAILY 05/04/17 [History] Calcium Carbonate/Vitamin D3 [Calcium 500+D Tablet Chew] 1 tab PO DAILY [History] Dapsone 100 mg PO DAILY 05/04/17 [History] Levothyroxine Sodium [Levoxyl] 125 mcg PO DAILY 05/04/17 [History] Loratadine [Claritin] 10 mg PO DAILY 05/04/17 [History] Ranitidine HCl [Heartburn Relief] 150 mg PO BID 05/04/17 [History] Lisinopril [Zestril] 2.5 mg PO DAILY #30 tab 05/07/17 [Rx] Metoprolol [Lopressor] 25 mg PO BID #60 tab 05/07/17 [Rx] Nicotine Patch [Nicoderm] 14 mg TD DAILY #28 patch 05/07/17 [Rx] Simvastatin [Zocor] 10 mg PO HS #30 tab 05/07/17 [Rx] predniSONE [PredniSONE] See Taper PO DAILY 05/09/17 [History] Levofloxacin [Levaquin] 750 mg PO DAILY #5 tablet 05/13/17 [Rx] Omeprazole [PriLOSEC] 20 mg PO DAILY@0630 #10 05/13/17 [Rx] Allergies/Adverse Reactions: 3 Allergy/AdvReac Type Severity Reaction Status Date / Time Penicillins Allergy Swelling Verified 07/11/16 04:38 of Lip/Tongue/Throat Sulfa (Sulfonamide Allergy Hives Verified 07/11/16 04:38 Antibiotics) Procedures/tests Complete & Pending: Procedures Performed prior 72 hours Category Date Time Status CT soft tissue neck w con [CT] Stat Cat Scan 05/11/17 09:22 Completed Date of admission: 05/10/17 00:43 Primary care physician: PCP NONE Discharging clinician: Bruce Morelos Anticipated date of discharge: 05/13/17 - Patient Status Disposition: Home, Self-Care Condition: Good Functional capacity at discharge: independent ambulation Overall status at discharge: patient is back to baseline - Discharge Instructions Follow Up With: Vargas Barron DO [Partnered Physician] - (1-2 weeks) Erin Sumner DO [Resident] - 05/17/17 10:20 am - Diet and Activity Activity: increase activity as tolerated, resume usual activities as tolerated Diet: advance to your usual diet Hospital course: Ms. Colunga is a 56 year old female who presented to the ER due to fever and neck stiffness and headache with some photophobia. She was admitted with a presumed diagnosis of meningitis vs meningismus. She was complaining of sore throat and neck stiffness, a CT of the soft tissue of the neck was performed to evaluate for any retropharyngeal abscess. Neck CT scan did not reveal any abnormality. Hence, she underwent lumbar posture by interventional radiology. Her CSF analysis did not reveal any evidence of viral or bacterial infection. The patient was monitored off antibiotics for 2 days and did not have any fevers. 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 Due to suspicion of systemic lupus, ALBERT, complement levels and urinalysis for proteinuria have been obtained. Urinalysis revealed proteinuria. Serological testing is currently pending at the time of discharge. As the patient is doing well, she has been deemed stable to be discharged home with outpatient follow- up with rheumatology. - Time Spent with Patient Total time spent providing and/or coordinating discharge services: Greater than 30 minutes (40 min) - Constitutional Vitals: Temp Pulse Resp BP Pulse Ox 98.5 F 93 18 104/56 97 05/13/17 07:00 05/13/17 07:00 05/13/17 07:00 05/13/17 07:00 05/13/17 07:00 Exam: Gen.: Lying in bed. No acute distress. Chest: Clear to auscultation bilaterally. No adventitious sounds present. CVS: First and second heart sounds present. No murmurs, rubs or gallops. Abdomen: Soft, nontender, obese. Bowel sounds present. No hepatosplenomegaly. Skin: No decubitus ulcers appreciated.
[2017-05-14 07:58] LABS: Complement Component 3 162 mg/dL (88-201)
[2017-05-14 07:59] LABS: ANA IgG by ELISA NONE DETECTED (None Detected); Complement Component 4 31 mg/dL (10-40)
[2017-05-15 08:06] LABS: HSV 1 Glycoprotein G IgG CSF 0.25 IV (<=0.89); HSV 2 Glycoprotein G IgG CSF 0.01 IV (<=0.89)
== END 2017-05-13 16:31 | disposition home or self-care (01) | DRG 720 ==
LOC: 2NENU 19:52 → EMEROO 19:52 → 2NENU 22:52 → SUATTDRO 05-10 00:43
PROVIDERS: ADMIT Internal Medicine Hematology & Oncology; ATTEND Internal Medicine Sleep Medicine

== ENCOUNTER 2017-08-04 19:51 | Observation (INO) ==
[2017-08-04] MEDS ORDERED: *HR* Morphine 2 MG/ML SYRINGE IVP ONE (20:23)
--- NOTE | 2017-08-04 20:37 | Emergency Department Note ---
Disposition Clinical Impression: Chest pain Qualifiers: Chest pain type: unspecified Qualified Code(s): R07.9 - Chest pain, unspecified Disposition: Admitted As Inpatient Condition: Fair Time of Disposition: 22:10 Chest Pain HPI - General Chief Complaint: ED Chest Pain Stated Complaint: had heart ablasion last week having chest pain Source: patient Limitations: no limitations Vital Signs Reviewed: Yes Nursing Notes Reviewed: Yes - History of Present Illness HPI Narrative: 57-year-old female past medical history of recent cardiac ablation 3 days ago for Ohegl-Nzvgoldlx-Cawqm syndrome presents to the emergency department with sharp chest pain and shorntess of breath that started 6 hours ago. Patient states that she has had soreness in her chest past few days, but never had any pain like this. Severity scale (1-10): 7 - Related Data Home Medications Medication Instructions Recorded Confirmed Aspirin [Lo-Dose Aspirin EC] 81 mg PO DAILY 05/04/17 08/04/17 Dapsone 100 mg PO DAILY 05/04/17 08/04/17 Levothyroxine Sodium [Levoxyl] 125 mcg PO DAILY 05/04/17 08/04/17 Previous Rx's Medication Instructions Recorded Lisinopril [Zestril] 2.5 mg PO DAILY #30 tab 05/07/17 Metoprolol [Lopressor] 25 mg PO BID #60 tab 05/07/17 Simvastatin [Zocor] 10 mg PO HS #30 tab 05/07/17 Omeprazole [PriLOSEC] 20 mg PO DAILY@0630 #10 05/13/17 Allergies Allergy/AdvReac Type Severity Reaction Status Date / Time Penicillins Allergy Swelling Verified 07/11/16 04:38 of Lip/Tongue/Throat Sulfa (Sulfonamide Allergy Hives Verified 07/11/16 04:38 Antibiotics) All systems ED: reviewed and negative except as stated. Review of Systems: As Per HPI Constitutional: Denies: fever Cardiovascular: Reports: chest pain. Denies: palpitations, syncope Respiratory: Reports: dyspnea. Denies: cough Gastrointestinal: Denies: nausea, vomiting Musculoskeletal: Denies: back pain Chest Pain PMH - Past Medical History Medical history: Reports: asthma, GERD, hypertension, thyroid disease Surgical history: Reports: , hysterectomy Psychiatric history: Reports: anxiety, panic disorder - Social History Smoking Status: Former smoker Alcohol use: Reports: none Drug use: Reports: none Physical Exam General: A 57-year-old female who appears to be in mild discomfort Head: autraumatic, EOMI, no conjuncitval pallor, no scleral icterus, Mouth: oral mucous membranes moist Neck: neck soft, trachea midline Chest:: Equal chest wall rise Lungs: Normal lungs sounds bilaterally, no wheezes, no respiratory distress Heart: normal heart sounds, normal rate and rhythm, Abdomen: soft, non-tender, no rigidity, no guarding, no rebdound tenderness Lower Extremities: no pedal edema, calves non-tender Integumentary: Skin warm, dry, and intact Neuro: Alert Psych: normal affect, normal mood - General Limitations: no limitations General appearance: alert, in no apparent distress Course Vital Signs Temperature 98.1 F 08/04/17 19:57 Pulse Rate 86 08/04/17 19:57 Respiratory Rate 20 08/04/17 19:57 Blood Pressure 136/85 08/04/17 19:57 O2 Sat by Pulse Oximetry 98 08/04/17 19:57 Temperature 98.4 F 08/04/17 23:07 Pulse Rate 95 08/05/17 04:13 Respiratory Rate 16 08/05/17 04:13 Blood Pressure 115/68 08/05/17 04:13 O2 Sat by Pulse Oximetry 97 08/05/17 04:13 Oxygen Delivery Oxygen Delivery Room Air Chest Pain - MDM Narrative Medical decision making narrative: 57-year-old female since in the emergency department with chest pain that is worsening 3 days post 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 Electrocardiogram does not reveal any ischemic ST changes. Chest x- ray does not reveal any cardiopulmonary disease. Troponin is elevated at 0.18. I suspect that this is secondary to her recent ablation and not from any new ischemic event. I spoke to the car worker helper bonded structures repairer Dr. Bond regarding further recommendations for this patient. She recommended that we keep the patient overnight to trend her troponin. Patient is currently not in any chest pain after administration of morphine. I discussed the plan with the patient and her son as far as keeping her. She was okay with with staying the night. Patient was admitted to the hospitalist who accepted her. Vital Signs Temperature 98.1 F 08/04/17 19:57 Pulse Rate 86 08/04/17 19:57 Respiratory Rate 20 08/04/17 19:57 Blood Pressure 136/85 08/04/17 19:57 O2 Sat by Pulse Oximetry 98 08/04/17 19:57 Temperature 98.1 F 08/04/17 19:57 Pulse Rate 78 08/04/17 21:25 Respiratory Rate 16 08/04/17 21:25 Blood Pressure 127/72 08/04/17 21:25 O2 Sat by Pulse Oximetry 95 08/04/17 21:25 Oxygen Delivery Oxygen Delivery Room Air Chest X-Ray 08/04/17 20:21 IMPRESSION: No acute cardiopulmonary disease. D/ / Shawn Shin MD / Shawn Shin MD Interpreting Provider: Shawn Shin MD - Medical Records Medical records reviewed: Yes I reviewed the patient's medical records. - Lab Data Lab results reviewed: Yes I reviewed the patient's lab results. Result diagrams: 08/05/17 01:49 08/05/17 01:49 Lab Results 08/04/17 08/04/17 08/04/17 Range/Units 20:29 20:29 20:29 WBC 6.7 (4.3-11.1) K/mcL RBC 3.77 L (3.82-4.97) M/mcL Hgb 11.1 L (11.5-15.4) g/dL Hct 35.5 (35.3-44.9) % MCV 94.2 (83.0-100.0) fL MCH 29.4 (28.0-33.3) pg MCHC 31.3 L (31.6-35.5) g/dL RDW 13.8 (11.5-14.5) % Plt Count 262 (140-400) K/mcL MPV 10.2 (9.4-12.4) fL Immature Gran % 0.1 (0-4) % Seg Neutrophils % 46.8 % Lymphocytes % 43.2 % Monocytes % 9.2 % Eosinophils % 0.0 % Basophils % 0.7 % Neutrophils # 3.2 (1.6-8.9) K/mcL Lymphocytes # 2.9 (0.6-4.6) K/mcL Monocytes # 0.6 (0.0-1.3) K/mcL Eosinophils # 0.0 (0.0-0.6) K/mcL Basophils # 0.1 (0.0-0.2) K/mcL Sodium 141 (136-145) mEq/L Potassium 4.4 (3.5-4.5) mEq/L Chloride 107 (98-109) mEq/L Carbon Dioxide 28 (19-29) mEq/L BUN 14 (7-20) mg/dL Creatinine 0.90 (0.57-1.11) mg/dL Est GFR ( Amer) > 60 (> 60) Est GFR (Non-Af Amer) > 60 (> 60) BUN/Creatinine Ratio 16 (6-26) Glucose 80 (70-99) mg/dL Calculated Osmolality 291 (280-300) Calcium 9.4 (8.6-10.8) mg/dL Troponin I (0-0.03) ng/mL B-Natriuretic Peptide 60 (0-100) pg/mL 08/04/ Range/Units 20:29 WBC (4.3-11.1) K/mcL RBC (3.82-4.97) M/mcL Hgb (11.5-15.4) g/dL Hct (35.3-44.9) % MCV (83.0-100.0) fL MCH (28.0-33.3) pg MCHC (31.6-35.5) g/dL RDW (11.5-14.5) % Plt Count (140-400) K/mcL MPV (9.4-12.4) fL Immature Gran % (0-4) % Seg Neutrophils % % Lymphocytes % % Monocytes % % Eosinophils % % Basophils % % Neutrophils # (1.6-8.9) K/mcL Lymphocytes # (0.6-4.6) K/mcL Monocytes # (0.0-1.3) K/mcL Eosinophils # (0.0-0.6) K/mcL Basophils # (0.0-0.2) K/mcL Sodium (136-145) mEq/L Potassium (3.5-4.5) mEq/L Chloride (98-109) mEq/L Carbon Dioxide (19-29) mEq/L BUN (7-20) mg/dL Creatinine (0.57-1.11) mg/dL Est GFR ( Amer) (> 60) Est GFR (Non-Af Amer) (> 60) BUN/Creatinine Ratio (6-26) Glucose (70-99) mg/dL Calculated Osmolality (280-300) Calcium (8.6-10.8) mg/dL Troponin I 0.18 H* (0-0.03) ng/mL B-Natriuretic Peptide (0-100) pg/mL - Radiology Data Radiology results reviewed: Yes I reviewed the patient's radiology results. - EKG Data EKG attestation: Yes I reviewed and interpreted this EKG. EKG results narrative: 20:09 Ventricular rate 83 bpm, NH interval 141 ms, QRS duration 99 ms, QT 368 ms, QTC 408 ms, normal axis. Sinus rhythm with a ventricular rate of 83 bpm there is no evidence of any ischemic ST changes noted when in comparison with her previous electric cardiogram performed on August 02, 2017. Attestation Statement - Attestation Attestation: I examined this patient and my medical decision-making was reviewed with the Resident Physician. I agree with the documented findings, disposition and treatment plan as described except to the extent set forth below. Patient eating playing a sharp substernal chest pain. Patient status post cardiac ablation on with Dr. Garza. She is nontoxic appearing on examination. Her lungs are clear. Heart regular. Plan. No ischemic changes on EKG. No ectopy on the monitor. Bedside ultrasound does not show an obvious pericardial effusion. Troponin is elevated at 0.18. Will discuss with cardiology.
[2017-08-04 20:46] LABS: Basophils # 0.1 K/mcL (0.0-0.2); Basophils % 0.7 %; Hematocrit 35.5 % (35.3-44.9); Hemoglobin 11.1 g/dL (11.5-15.4); Immature Granulocytes % 0.1 % (0-4); Lymphocytes # 2.9 K/mcL (0.6-4.6); Lymphocytes % 43.2 %; Mean Corpuscular HGB Conc 31.3 g/dL (31.6-35.5); Mean Corpuscular Hemoglobin 29.4 pg (28.0-33.3); Mean Corpuscular Volume 94.2 fL (83.0-100.0); Mean Platelet Volume 10.2 fL (9.4-12.4); Monocytes # 0.6 K/mcL (0.0-1.3); Monocytes % 9.2 %; Neutrophils # 3.2 K/mcL (1.6-8.9); Platelet Count 262 K/mcL (140-400); Red Blood Count 3.77 M/mcL (3.82-4.97); Red Cell Distribution Width 13.8 % (11.5-14.5); Segmented Neutrophils % 46.8 %
[2017-08-04 21:00] LABS: BUN/Creatinine Ratio 16 (6-26); Blood Urea Nitrogen 14 mg/dL (7-20); Calcium 9.4 mg/dL (8.6-10.8); Carbon Dioxide 28 mEq/L (19-29); Chloride 107 mEq/L (98-109); Glucose 80 mg/dL (70-99); Osmolality,Calculated 291 (280-300); Potassium 4.4 mEq/L (3.5-4.5); Sodium 141 mEq/L (136-145); eGFR For African Americans > 60 (> 60); eGFR For Non-African Americans > 60 (> 60)
[2017-08-04] MEDS ORDERED: Aspirin 325 MG TABLET PO ONE (21:57)
[2017-08-04] MEDS ORDERED: *HR* LORazepam 1 MG TABLET PO PRN (22:36)
[2017-08-04] MEDS ORDERED: Naloxone 0.4 MG/ML INJ IVP PRN (22:37)
--- NOTE | 2017-08-04 22:44 | Internal Med History&Physical ---
<Hayes Jimenes J - Last Filed: 08/04/17 22:40> Date of Encounter: 08/04/17 Time of Encounter: 22:40 Assessment and Plan (1) Atypical chest pain Current visit: Yes Status: Acute Presents today with atypical chest pain. Chest pain is described as intermittent needlelike sensations followed by mild burning. Additionally she mentions mild shortness of breath. She is currently hemodynamically stable and not hypoxic. EKG shows no ischemic changes, NSR at a rate of 83. She was given 325 of aspirin and IV morphine in the ED with resolution of chest pain. Recently underwent cardiac ablation for Gntyz-Mqxwxjlmv-Ijshf. There is some concern for pericardial effusion after cardiac ablation however, She does not appear toxic, No leukocytosis noted. Noted elevation in troponin at 0.18 likely do to ablation. 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 Denies any palpitations or feelings of tachycardia. Recent EKG shows no ischemic changes normal sinus rhythm rate of 83, patient hemodynamically stable. See assessment and plan above (3) Panic attacks Current visit: Yes Status: Chronic Patient appears anxious upon my examination. Admits to history of anxiety, requesting to be placed on anxiolytic. Patient reports that when she becomes anxious she does often feel short of breath and feels like her current anxiety could be contributing to her short of breath sensation Ativan 1 mg by mouth every 6 hours when necessary (4) DVT prophylaxis Current visit: Yes Status: Acute Lovenox 40 mg subcutaneous daily Internal Medicine - H&P: HPI Chief complaint: Chest pain, elevated troponin Admitted From: Home Plans for Post Hospital Care: Home History of present illness: Ms. Colunga is a 57 year old female with a PMH of asthma, GERD, HTN, hypothyroidism, former smoker. Had an ablation for WPW 2 days ago. The patient reports that 2 days ago she began experiencing some intermittent needlelike chest pain lasting a short time followed by a burning sensation. She states the chest pain is not exacerbated by activity. Additionally, she reports some mild shortness of breath, she also admits to anxiety and is wondering if the shortness of breath is attributed to her anxiety. While in the ED she was given 4 mg morphine IV push and chest pain subsided. Denies any fever, chills, fatigue, diaphoresis, nausea, vomiting, edema, unilateral extremity swelling. Troponin elevated at 0.18, chest x-ray unremarkable. Due to recent ablation patient will be admitted for further monitoring and workup Past Med Surg Social Fam HX - Past Medical History Medical history: asthma, GERD, hypertension, thyroid disease Psychiatric history: anxiety, panic disorder - Past Surgical History Surgical History: , hysterectomy - Social History Smoking Status: Former smoker Smokeless Tobacco Status: No Alcohol use: none Drug use: none - Family History Mother Hx Family Cardiac Disorders: No Hx Family Respiratory Disorders: Yes Father Hx Family Cardiac Disorders: No Internal Medicine - H&P: Meds Aspirin [Lo-Dose Aspirin EC] 81 mg PO DAILY 05/04/17 [History] Dapsone 100 mg PO DAILY 05/04/17 [History] Levothyroxine Sodium [Levoxyl] 125 mcg PO DAILY 05/04/17 [History] Lisinopril [Zestril] 2.5 mg PO DAILY #30 tab 05/07/17 [Rx] Metoprolol [Lopressor] 25 mg PO BID #60 tab 05/07/17 [Rx] Simvastatin [Zocor] 10 mg PO HS #30 tab 05/07/17 [Rx] Omeprazole [PriLOSEC] 20 mg PO DAILY@0630 #10 05/13/17 [Rx] 3 Allergy/AdvReac Type Severity Reaction Status Date / Time Penicillins Allergy Swelling Verified 07/11/16 04:38 of Lip/Tongue/Throat Sulfa (Sulfonamide Allergy Hives Verified 07/11/16 04:38 Antibiotics) All Systems PM: A 10-system review of systems was performed and is negative for pertinent findings except as documented above in the HPI. - Constitutional Constitutional: no chills, no excessive sweating, no fatigue, no fever(s), no falls, no weight gain - Cardiovascular Cardiovascular ROS IM: as per HPI, chest pain, dyspnea (Mild dyspnea states she notices it more with conversation denies worsening upon exertion), no dyspnea on exertion (Denies dyspnea getting worse on exertion), no edema, no irregular heart rhythm (Denies feeling any new arrhythmias), no lightheadedness, no palpitations (Denies any palpitations), no paroxysmal nocturnal dyspnea, no syncope - Respiratory Respiratory: cough (Nonproductive), no chest congestion, no excessive phlegm production, no pain with cough - Gastrointestinal Gastrointestinal: no abdominal pain, no diarrhea, no hematemesis, no hematochezia, no melena, no nausea, no vomiting - Genitourinary Genitourinary: no change in urinary stream, no dysuria, no flank pain, no hematuria - Musculoskeletal Musculoskeletal ROS IM: no numbness, no tingling - Integumentary Integumentary IM: no rash, no unusual bruising - Constitutional Vitals: Temp Pulse Resp BP Pulse Ox 98.1 F 78 16 142/70 95 08/04/17 19:57 08/04/17 21:25 08/04/17 22:32 08/04/17 22:32 08/04/17 21:25 General appearance: Present: cooperative, A&O X 3, no acute distress, obese, answers questions appropriately - Head Head exam: Present: atraumatic, normocephalic - Eye Eye exam: Present: PERRL, conjuntiva pink, sclera anicteric Pupils: Present: PERRL - Neck Neck exam general surgery: Present: supple, trachea midline. Absent: lymphadenopathy - Respiratory Respiratory exam: Present: CTAB. Absent: accessory muscle use, rales, rhonchi, wheezes - Cardiovascular Cardiovascular exam: Present: RRR, +S1, +S2. Absent: diastolic murmur, gallop, rubs, systolic murmur - GI/Abdominal GI/Abdominal exam: Present: normal bowel sounds, soft, no peritoneal signs. Absent: distended, tenderness - Extremities Exam Extremities exam: Present: warm, radial pulses palpable and symmetrical. Absent : calf tenderness, cyanotic, pedal edema - Neurological Exam Neurological exam: Present: CN II-XII intact, oriented X3, no focal deficits. Absent: pronater drift, facial droop, speech deficit - Skin Skin exam: Present: dry, intact Internal Med - H&P Results - Labs CBC & Chem 7: 08/04/17 20:29 08/04/17 20:29 - EKG Data -: EKG Interpreted by Myself EKG shows normal: sinus rhythm - EKG Data Prior EKG available for review: yes When compared to previous EKG: there is no significant change Interpretation IM: normal EKG EKG comments: 08/04/17 22:45 NSR rate of [address] elevation no changes from prior EKG - Diagnostic Studies Chest x-ray Status: image reviewed by me Additional comments: No acute pulmonary process <Moses Lara - Last Filed: 08/05/17 00:37> Date of Encounter: 08/05/17 Internal Medicine - H&P: HPI History of present illness: Ms. Colunga is a 57 year old female All Systems PM: A 10-system review of systems was performed and is negative for pertinent findings except as documented above in the HPI. - Constitutional Vitals: Temp Pulse Resp BP Pulse Ox 98.4 F 89 17 144/86 96 08/04/17 23:07 08/04/17 23:07 08/04/17 23:07 08/04/17 23:07 08/04/17 23:07 Internal Med - H&P Results - Labs CBC & Chem 7: 08/04/17 20:29 08/04/17 20:29 - Attending Attestation I have seen and examined patient independently. I have discussed with [employer] [employer] Mr Jimenes regarding the management plan. Agree with that documentation. Pt has chest pain whick like needle stick her, last less than one second. EKG reviewed, unremarkable. Elevated troponin most likely due to recent ablation. Will cont monitoring in tele, track 3 sets of troponin.
[2017-08-05 02:00] LABS: Hematocrit 33.1 % (35.3-44.9); Hemoglobin 10.7 g/dL (11.5-15.4); Immature Platelets 3.9 % (1.1-6.1); Mean Corpuscular HGB Conc 32.3 g/dL (31.6-35.5); Mean Corpuscular Hemoglobin 30.2 pg (28.0-33.3); Mean Corpuscular Volume 93.5 fL (83.0-100.0); Mean Platelet Volume 10.2 fL (9.4-12.4); Red Blood Count 3.54 M/mcL (3.82-4.97); Red Cell Distribution Width 13.7 % (11.5-14.5)
[2017-08-05 02:11] LABS: BUN/Creatinine Ratio 17 (6-26); Blood Urea Nitrogen 15 mg/dL (7-20); Calcium 9.1 mg/dL (8.6-10.8); Carbon Dioxide 28 mEq/L (19-29); Chloride 107 mEq/L (98-109); Glucose 117 mg/dL (70-99); Osmolality,Calculated 296 (280-300); Potassium 4.3 mEq/L (3.5-4.5); Sodium 142 mEq/L (136-145); eGFR For African Americans > 60 (> 60); eGFR For Non-African Americans > 60 (> 60)
[2017-08-05] MEDS ORDERED: *HR* Enoxaparin 40 MG/0.4 ML SYRINGE SQ SCH (06:00)
[2017-08-05] MEDS ORDERED: Aspirin Enteric Coated 81 MG Tablet PO SCH (09:00)
--- NOTE | 2017-08-05 10:54 | Internal Med Progress Note ---
<Christopher Corral - Last Filed: 08/05/17 14:03> Date of Encounter: 08/05/17 Time of Encounter: 10:30 - Assessment and plan (1) Atypical chest pain Current Visit: Yes Status: Acute Assessment and plan: Presents with atypical chest pain. Chest pain is described as intermittent needle-like sensations followed by mild burning. Additionally she mentions mild shortness of breath. She is currently hemodynamically stable and not hypoxic. EKG shows no ischemic changes, NSR at a rate of 83. She was given 325 of aspirin and IV morphine in the ED with resolution of chest pain. Recently underwent cardiac ablation for Imufo-Nygucisqc-Dkchq. There is some concern for pericardial effusion after cardiac ablation Noted elevation in troponin at peak 0.18 likely do to ablation, Serial troponins downtrending Cardiology consulted, and advised to admit for further monitoring Continuous telemetry, continuous O2 monitoring Echocardiogram reveals EF 60-65% with no pericardial effusion (2) WPW (Trflr-Xavdwglyq-Utzze syndrome) Current Visit: Yes Status: Chronic Assessment and plan: History of, underwent ablation 08/02/17. Denies any palpitations or feelings of tachycardia. Recent EKG shows no ischemic changes normal sinus rhythm rate of 83, patient hemodynamically stable. See above (3) Panic attacks Current Visit: Yes Status: Chronic Assessment and plan: Patient appears anxious upon my examination. Admits to history of anxiety, requesting to be placed on anxiolytic. Patient reports that when she becomes anxious she does often feel short of breath and feels like her current anxiety could be contributing to her short of breath sensation Ativan 1 mg by mouth every 6 hours when necessary (4) Hypertension Current Visit: No Status: Chronic Assessment and plan: Continue home meds Qualifiers: Hypertension type: essential hypertension Qualified Code(s): I10 - Essential (primary) hypertension (5) Hypothyroidism Current Visit: Yes Status: Chronic Assessment and plan: Continue home meds Qualifiers: Hypothyroidism type: unspecified Qualified Code(s): E03.9 - Hypothyroidism , unspecified (6) Asthma Current Visit: No Status: Chronic Assessment and plan: Continue home meds Qualifiers: Asthma severity: mild Asthma persistence: intermittent Asthma complication type: uncomplicated Qualified Code(s): J45.20 - Mild intermittent asthma, uncomplicated (7) GERD (gastroesophageal reflux disease) Current Visit: Yes Status: Acute Assessment and plan: Continue home meds Qualifiers: Esophagitis presence: esophagitis presence not specified Qualified Code(s) : K21.9 - Gastro-esophageal reflux disease without esophagitis (8) Obesity (BMI 30.0-34.9) Current Visit: Yes Status: Acute Assessment and plan: BMI 31.3 Diet modification and exercise discussed (9) DVT prophylaxis Current Visit: Yes Status: Acute Assessment and plan: Lovenox - Subjective Interval history: Patient seen and examined sitting up in bed. Patient reports no CP at his time and is awaiting echo. Serial troponins are down trending. All questions were answered at bedside. - Constitutional Vitals: Temp Pulse Resp BP Pulse Ox 97.4 F L 86 18 124/81 97 08/05/17 07:25 08/05/17 07:25 08/05/17 07:25 08/05/17 07:25 08/05/17 07:25 General appearance: Present: cooperative, A&O X 3, no acute distress, obese, answers questions appropriately - Head Head exam: Present: atraumatic, normocephalic - Eye Eye exam: Present: PERRL, conjuntiva pink, sclera anicteric Pupils: Present: PERRL - Neck Neck exam general surgery: Present: supple, trachea midline. Absent: lymphadenopathy - Respiratory Respiratory exam: Present: CTAB. Absent: accessory muscle use, rales, rhonchi, wheezes - Cardiovascular Cardiovascular exam: Present: RRR, +S1, +S2. Absent: diastolic murmur, gallop, rubs, systolic murmur - GI/Abdominal GI/Abdominal exam: Present: normal bowel sounds, soft, no peritoneal signs. Absent: distended, tenderness - Additional comments: no vasques - Extremities Exam Extremities exam: Present: normal inspection, warm, radial pulses palpable and symmetrical. Absent: calf tenderness, cyanotic, pedal edema Additional comments: no bruising in groin - Back Exam Back exam: Present: normal inspection. Absent: paraspinal tenderness, tenderness - Neurological Exam Neurological exam: Present: CN II-XII intact, oriented X3, no focal deficits. Absent: pronater drift, facial droop, speech deficit - Psychiatric Psychiatric exam: Present: anxious, normal affect - Skin Skin exam: Present: dry, intact, warm Internal Medicine: Result - Labs CBC & Chem 7: 08/05/17 01:49 08/05/17 01:49 Labs: Short CBC 08/05/17 Range/Units 01:49 WBC 6.6 (4.3-11.1) K/mcL Hgb 10.7 L (11.5-15.4) g/dL Hct 33.1 L (35.3-44.9) % Plt Count 249 (140-400) K/mcL [facility] 08/05/17 01:49 Sodium 142 Potassium 4.3 Chloride 107 Carbon Dioxide 28 BUN 15 Creatinine 0.88 Glucose 117 H Calcium 9.1 Cardiac Enzymes 08/05/17 08/05/17 Range/Units 01:49 07:24 Troponin I 0.17 H* 0.16 H* (0-0.03) ng/mL - Pulse Oximetry Interpretation Digit-Finger Pulse Oximetry Readin (on RA) Consult Discharge Plan - Plan Referrals: Eirn Sumner DO [Primary Care Provider] - <Jc Hurley H - Last Filed: 08/05/17 14:04> Date of Encounter: 08/05/17 - Constitutional Vitals: Temp Pulse Resp BP Pulse Ox 97.4 F L 86 18 124/81 97 08/05/17 07:25 08/05/17 07:25 08/05/17 07:25 08/05/17 07:25 08/05/17 07:25 Internal Medicine: Result - Labs CBC & Chem 7: 08/05/17 01:49 08/05/17 01:49 Labs: Short CBC 08/05/17 Range/Units 01:49 WBC 6.6 (4.3-11.1) K/mcL Hgb 10.7 L (11.5-15.4) g/dL Hct 33.1 L (35.3-44.9) % Plt Count 249 (140-400) K/mcL [facility] 08/05/17 01:49 Sodium 142 Potassium 4.3 Chloride 107 Carbon Dioxide 28 BUN 15 Creatinine 0.88 Glucose 117 H Calcium 9.1 Cardiac Enzymes 08/05/17 08/05/17 Range/Units 01:49 07:24 Troponin I 0.17 H* 0.16 H* (0-0.03) ng/mL - Impressions Impressions Echocardiogram Limited Views 08/05/17 22:36 Impressions: LVEF 60-65%. There is no pericardial effusion present. Left Ventricular Wall Motion: Rest Echo Findings All wall segments showed normal motion. Findings: Study Quality * Technically adequate exam. ECG Findings * Normal sinus rhythm. Left Ventricle * LVEF 60-65%. IVC * The IVC is not dilated. * < 50% respiratory change. Pericardium * There is no pericardial effusion present. Right Ventricle * Normal right ventricular structure and function. - Attending Attestation Awaiting cardiology recommendations for possible discharge later today. I examined this patient and my medical decision-making was reviewed with the Resident Physician. I agree with the documented findings, disposition and treatment plan as described except to the extent set forth below.
--- NOTE | 2017-08-05 14:06 | Discharge Summary ---
<Christopher Corral - Last Filed: 08/05/17 15:47> Date of Encounter: 08/05/17 Time of Encounter: 14:04 - Discharge Diagnosis (1) Atypical chest pain Priority: Primary Status: Acute Comments: Presents with atypical chest pain. Chest pain is described as intermittent needle-like sensations followed by mild burning. Additionally she mentions mild shortness of breath. She is currently hemodynamically stable and not hypoxic. EKG shows no ischemic changes, NSR at a rate of 83. She was given 325 of aspirin and IV morphine in the ED with resolution of chest pain. Recently underwent cardiac ablation for Tudzv-Jvsdzkvgt-Stfyt. There is some concern for pericardial effusion after cardiac ablation Noted elevation in troponin at peak 0.18 likely do to ablation, Serial troponins downtrending Continuous telemetry, continuous O2 monitoring Echocardiogram reveals EF 60-65% with no pericardial effusion Cardiology consulted, and advised no further testing is warranted this time. Patient was advised to use NSAIDS for pain and inflammation at home for the next week with tylenol. She was specifically told to use aleve or ibuprofen OTC as dosed per label. She has not established a plan with Dr. Johnathan Garza on 09/05/2017. She was asked to call the office should she have new or concerning symptoms or to seek emergency medical treatment if symptoms are persistent or severe. Patient expressed understanding and agreement with plan of care. 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 Denies any palpitations or feelings of tachycardia. Recent EKG shows no ischemic changes normal sinus rhythm rate of 83, patient hemodynamically stable. See above (3) Panic attacks Priority: Secondary Status: Chronic Comments: Patient appears anxious upon my examination. Admits to history of anxiety, requesting to be placed on anxiolytic. Patient reports that when she becomes anxious she does often feel short of breath and feels like her current anxiety could be contributing to her short of breath sensation Ativan 1 mg by mouth every 6 hours when necessary (4) Hypertension Priority: Secondary Status: Chronic Comments: Continue home meds Qualifiers: Hypertension type: essential hypertension Qualified Code(s): I10 - Essential (primary) hypertension (5) Hypothyroidism Priority: Secondary Status: Chronic Comments: Continue home meds Qualifiers: Hypothyroidism type: unspecified Qualified Code(s): E03.9 - Hypothyroidism , unspecified (6) Asthma Priority: Secondary Status: Chronic Comments: Continue home meds Qualifiers: Asthma severity: mild Asthma persistence: intermittent Asthma complication type: uncomplicated Qualified Code(s): J45.20 - Mild intermittent asthma, uncomplicated (7) GERD (gastroesophageal reflux disease) Priority: Secondary Status: Acute Comments: Continue home meds Qualifiers: Esophagitis presence: esophagitis presence not specified Qualified Code(s) : K21.9 - Gastro-esophageal reflux disease without esophagitis (8) Obesity (BMI 30.0-34.9) Priority: Secondary Status: Acute Comments: BMI 31.3 Diet modification and exercise discussed (9) DVT prophylaxis Priority: Primary Status: Acute Comments: Lovenox - Discharge Medications Prescriptions: Acetaminophen [Tylenol] 500 mg PO Q8HR PRN #30 tablet PRN Reason: Pain Ibuprofen [Motrin] 600 mg PO Q8HR PRN #30 tab PRN Reason: Pain Home Medications: Aspirin [Lo-Dose Aspirin EC] 81 mg PO DAILY 05/04/17 [History] Dapsone 100 mg PO DAILY 05/04/17 [History] Levothyroxine Sodium [Levoxyl] 125 mcg PO DAILY 05/04/17 [History] Metoprolol [Lopressor] 25 mg PO BID #60 tab 05/07/17 [Rx] Omeprazole [PriLOSEC] 20 mg PO DAILY@0630 #10 05/13/17 [Rx] Acetaminophen [Tylenol] 500 mg PO Q8HR PRN #30 tablet 08/05/17 [Rx] Fluocinonide 1 appl TP DAILY 08/05/17 [History] Fluticasone Propionate Nasal [Flonase] 1 spr NS BID PRN 08/05/17 [History] Ibuprofen [Motrin] 600 mg PO Q8HR PRN #30 tab 08/05/17 [Rx] Lisinopril 2.5 mg PO DAILY 08/05/17 [History] Simvastatin [Zocor] 10 mg PO HS 08/05/17 [History] Allergies/Adverse Reactions: 3 Allergy/AdvReac Type Severity Reaction Status Date / Time Penicillins Allergy Swelling Verified 07/11/16 04:38 of Lip/Tongue/Throat Sulfa (Sulfonamide Allergy Hives Verified 07/11/16 04:38 Antibiotics) Procedures/tests Complete & Pending: Procedures Performed prior 72 hours Category Date Time Status EV limited echocardiogram Routine Y 08/05/17 22:36 Completed Date of admission: 08/04/17 22:16 Primary care physician: Erin Sumner DO Consults: Cardiology Discharging clinician: Christopher Corral Anticipated date of discharge: 08/05/17 - Patient Status Disposition: Home, Self-Care Condition: Good Functional capacity at discharge: independent ambulation Overall status at discharge: patient is back to baseline - Discharge Instructions Follow Up With: Erin Sumner DO [Primary Care Provider] - Additional Instructions: Patient was advised to use NSAIDS for pain and inflammation at home for the next week with tylenol. She was specifically told to use aleve or ibuprofen OTC as dosed per label. Schedule follow up appointment with Dr. Johnathan Garza and call the office should she have new or concerning symptoms or to seek emergency medical treatment if symptoms are persistent or severe. - Diet and Activity Activity: resume usual activities as tolerated Diet: low fat, low cholesterol, low salt diet Hospital course: Ms. Colunga is a 57 year old female with a PMH of asthma, GERD, HTN, hypothyroidism, and former smoker who had an ablation for WPW on 08/02/17 that presented with intermittent needle-like chest pain lasting a short time followed by a burning sensation. She states the chest pain is not exacerbated by activity. Additionally, she reports some mild shortness of breath, she also admits to anxiety and is wondering if the shortness of breath is attributed to her anxiety. While in the ED she was given 4 mg morphine IV push and chest pain subsided. Chest x-ray unremarkable. Due to recent ablation patient will be admitted for further monitoring and workup. Echocardiogram reveals EF 60-65% normal LV systolic function and RV function without evidence of pericardial effusion. Cardiology evaluated the patient and determined patient's chest pain is atypical and likely secondary to the inflammation and healing process after undergoing radiofrequency ablation for WPW syndrome on 08/02/2017. Her symptoms resolved with pain medicine and she has been without discomfort throughout her stay. She had a mild troponin elevation Troponin peak elevation at 0.18, which is not indicative of ACS in this setting. Her ECG is without ischemic changes. WPW pattern is not observed on her ECG done during this hospitalization. Cardiology advised the patient to call the office if her symptoms worsen and recommended no further testing is warranted this time. Patient was advised to use NSAIDS for pain and inflammation at home for the next week with tylenol. She was specifically told to use aleve or ibuprofen OTC as dosed per label. She was asked to Follow up with Dr. Johnathan Garza and call the office should she have new or concerning symptoms or to seek emergency medical treatment if symptoms are persistent or severe. She would like to go home. Patient expressed understanding and agreement with plan of care. - Time Spent with Patient Total time spent providing and/or coordinating discharge services: - Constitutional Vitals: Temp Pulse Resp BP Pulse Ox 97.4 F L 86 18 124/81 97 08/05/17 07:25 08/05/17 07:25 08/05/17 07:25 08/05/17 07:25 08/05/17 07:25 General appearance: Present: cooperative, A&O X 3, no acute distress, obese, answers questions appropriately Exam: - Head Head exam: Present: atraumatic, normocephalic - Eye Eye exam: Present: PERRL, conjuntiva pink, sclera anicteric Pupils: Present: PERRL - Neck Neck exam general surgery: Present: supple, trachea midline. Absent: lymphadenopathy - Respiratory Respiratory exam: Present: CTAB. Absent: accessory muscle use, rales, rhonchi, wheezes - Cardiovascular Cardiovascular exam: Present: RRR, +S1, +S2. Absent: diastolic murmur, gallop, rubs, systolic murmur - GI/Abdominal GI/Abdominal exam: Present: normal bowel sounds, soft, no peritoneal signs. Absent: distended, tenderness - Additional comments: no vasques - Extremities Exam Extremities exam: Present: normal inspection, warm, radial pulses palpable and symmetrical. Absent: calf tenderness, cyanotic, pedal edema Additional comments: no bruising in groin - Back Exam Back exam: Present: normal inspection. Absent: paraspinal tenderness, tenderness - Neurological Exam Neurological exam: Present: CN II-XII intact, oriented X3, no focal deficits. Absent: pronater drift, facial droop, speech deficit - Psychiatric Psychiatric exam: Present: anxious, normal affect - Skin Skin exam: Present: dry, intact, warm <Jc Hurley - Last Filed: 08/05/17 16:46> Date of Encounter: 08/05/17 Procedures/tests Complete & Pending: Procedures Performed prior 72 hours Category Date Time Status EV limited echocardiogram Routine Y 08/05/17 22:36 Completed Date of admission: 08/04/17 22:16 Primary care physician: Erin Sumner DO Hospital course: Ms. Colunga is a 57 year old female - Time Spent with Patient Total time spent providing and/or coordinating discharge services: - Constitutional Vitals: Temp Pulse Resp BP Pulse Ox 97.8 F 78 18 141/68 96 08/05/17 13:00 08/05/17 13:00 08/05/17 13:00 08/05/17 13:00 08/05/17 13:00 - Attending Attestation ok to discharge per cardiology. Time spent: 40 min I examined this patient and my medical decision-making was reviewed with the Resident Physician. I agree with the documented findings, disposition and treatment plan as described except to the extent set forth below.
--- NOTE | 2017-08-05 15:16 | Cardiology Consult Note ---
Date of Encounter: 08/05/17 Time of Encounter: 10:00 Assessment and Plan (1) Chest pain Current Visit: Yes Status: Acute Patient's chest pain is atypical and likely secondary to the inflammation and healing process after undergoing radiofrequency ablation for WPW syndrome on . Her symptoms resolved with pain medicine and she has been without discomfort throughout her stay. An echo performed demonstrated normal LV systolic function and RV function without evidence of pericardial effusion. She had a mild troponin elevation which is not indicative of ACS in this setting. Her ECG is without ischemic changes. WPW pattern is not observed on her ECG done during this hospitalization. She will otherwise reports mild tenderness in her right groin which she says overall has improved. On exam, the right groin appears soft and without ecchymoses. I advised the patient to call the office if her symptoms worsen. No further testing is warranted this time. Patient was advised to use NSAIDS for pain and inflammation at home for the next week with tylenol. She was specifically told to use aleve or ibuprofen OTC as dosed per label. She has not established a plan with Dr. Johnathan Garza on 09/05/2017. She was asked to call the office should she have new or concerning symptoms or to seek emergency medical treatment if symptoms are persistent or severe. Patient expressed understanding and agreement with plan of care. She would like to go home. We will sign off at this time. Please call with questions. Qualifiers: Chest pain type: unspecified Qualified Code(s): R07.9 - Chest pain, unspecified Discussion w patient/family: The assessment and plan as outlined above was discussed with the patient and/or family members who expressed understanding and agreement. All questions were answered. Thank you for involving us in the care of your patient. Please call with any questions. History of Present Illness Consult date: 08/05/17 Requesting physician: Jc Hurley Consult reason: chest pain Chief complaint: chest pain History of present illness: Ms. Colunga is a 57 year old female who recently underwent cardiac ablation for WPW syndrome 08/02/2017. Patient states that she was doing fine after discharge until yesterday when she developed chest pain around 2 PM. They persisted intermittently until about 4 PM, cause concern and she presented to the emergency room. At the bedside, the patient states she is feeling much better. She denies further chest pain and also denies palpitations. Her symptoms went away with pain medicine. She has no other symptoms to report. She is interested in going home. Past Med Surg Social Fam HX - Past Medical History Attestation: Yes The following information was validated with the patient. Medical history: asthma, GERD, hypertension, thyroid disease Psychiatric history: anxiety, panic disorder - Past Surgical History Surgical History: , hysterectomy - Social History Smoking Status: Former smoker Smokeless Tobacco Status: No Alcohol use: none Drug use: none - Family History Mother Hx Family Cardiac Disorders: No Hx Family Respiratory Disorders: Yes Father Hx Family Cardiac Disorders: No Medications and Allergies Aspirin [Lo-Dose Aspirin EC] 81 mg PO DAILY 05/04/17 [History] Dapsone 100 mg PO DAILY 05/04/17 [History] Levothyroxine Sodium [Levoxyl] 125 mcg PO DAILY 05/04/17 [History] Metoprolol [Lopressor] 25 mg PO BID #60 tab 05/07/17 [Rx] Omeprazole [PriLOSEC] 20 mg PO DAILY@0630 #10 05/13/17 [Rx] Fluocinonide [Fluocinonide] 1 appl TP DAILY 08/05/17 [History] Fluticasone Propionate Nasal [Flonase] 1 spr NS BID PRN 08/05/17 [History] Lisinopril [Lisinopril] 2.5 mg PO DAILY 08/05/17 [History] Simvastatin [Zocor] 10 mg PO HS 08/05/17 [History] 3 Allergy/AdvReac Type Severity Reaction Status Date / Time Penicillins Allergy Swelling Verified 07/11/16 04:38 of Lip/Tongue/Throat Sulfa (Sulfonamide Allergy Hives Verified 07/11/16 04:38 Antibiotics) All Systems Review: A 10-system review of systems was performed and is negative for pertinent findings except as documented above in the HPI. - Cardiovascular Cardiovascular: as per HPI Physical Examination General: Conversant, No Apparent Distress HEENT: Atraumatic, Normocephaly, Mucus Membranes Moist Neck: No JVD Cardiac: Reg Rate and Rhythm, Normal S1 and S2, Other (2/6 soft systolic murmur RSB) Lungs: Normal Breath Sounds, No Wheeze, Rales, Rhonchi Neuro: Alert and responsive, No focal deficits noted Abdomen: Soft, Non-Tender, Other (Normal bowel sounds) Extremities: No Edema, Normal Pulses, Other (left groin is soft, nontender without ecchymoses, right groin is soft with mild tenderness and without ecchymoses) Results 08/05/17 01:49 08/05/17 01:49 Lab Results 08/05/17 08/05/17 08/05/17 01:49 01:49 01:49 WBC 6.6 Hgb 10.7 L Hct 33.1 L Plt Count 249 Sodium 142 Potassium 4.3 Chloride 107 Carbon Dioxide 28 BUN 15 Creatinine 0.88 Glucose 117 H Calcium 9.1 Troponin I 0.17 H* 08/05/17 07:24 WBC Hgb Hct Plt Count Sodium Potassium Chloride Carbon Dioxide BUN Creatinine Glucose Calcium Troponin I 0.16 H* - Imaging and Cardiology Echo: report reviewed, image reviewed - EKG Interpretation EKG results cardiology: personally reviewed (No new ECG changes, NSR), other ( 24h telemetry demonstrates average heart rate 82 bpm without dysrhythmia) Consult Discharge Plan - Plan Referrals: Erin Sumner DO [Primary Care Provider] -
[2017-08-05 16:28] VITALS: BP 141/68
--- NOTE | 2017-08-05 17:48 | Electrocardiograph Report ---
[place] [id number] Test Date: 2017-08-04 Pat Name: Vivian Colunga Department: 104 Room: [id number] Gender: F Section Maintainer: DANTE : 1960 Requested By: Librado Govea Order Number: [id number] Reading MD: Grisel Candelaria Measurements Intervals [place] Rate: 83 P: 69 LA: 141 QRS: 70 QRSD: 99 T: 38 QT: 368 QTc: 408 Interpretive Statements SINUS RHYTHM INCOMPLETE RIGHT BUNDLE BRANCH BLOCK NONSPECIFIC ST ABNORMALITIES Electronically Signed On 08-05-2017 17:46:30 EST by Grisel Candelaria
== END 2017-08-05 17:14 | disposition home or self-care (01) ==
LOC: 2NENU 19:51 → EMEROO 19:51 → 2NENU 22:50
PROVIDERS: ADMIT Nurse Practitioner; ATTEND Internal Medicine

== ENCOUNTER 2017-09-24 14:13 | Observation (INO) ==
--- NOTE | 2017-09-24 15:06 | Emergency Department Note ---
Disposition Clinical Impression: Vertigo Disposition: Admitted As Inpatient Condition: Good Referrals: Erin Sumner DO [Primary Care Provider] - Forms: ED Satisfaction Letter Dizziness HPI - General Chief Complaint: ED Dizziness Stated Complaint: Dizziness Time Seen by Provider: 09/24/17 14:44 Source: EMS Mode of arrival: EMS Limitations: no limitations Nursing Notes Reviewed: Yes Vital Signs Reviewed: Yes - History of Present Illness HPI Narrative: 57-year-old female history of Wvjxx-Tbuwncwmd-Lsils syndrome who presents to the ER with a chief complaint of dizziness. Patient reports symptoms started a few hours ago. States that she was arrested they started. Feels like everything is spinning. Denies any head injury. No history of vertigo. Denies any chest pain. She has been sick for a week with a cough. She denies numbness tingling or paresthesias. Pt Subjective Complaint: dizziness Onset (ago): hour(s) Timing: sudden onset Description: "room spinning" History of similar episodes: No History of trauma: No Severity: moderate Improves with: remaining still Worsens with: movement Associated symptoms: Reports: denies other symptoms - Related Data Home Medications Medication Instructions Recorded Confirmed Aspirin [Lo-Dose Aspirin EC] 81 mg PO DAILY 05/04/17 09/24/17 Dapsone 100 mg PO DAILY 05/04/17 09/24/17 Levothyroxine Sodium [Levoxyl] 125 mcg PO DAILY 05/04/17 09/24/17 Fluocinonide 1 appl TP DAILY 08/05/17 09/24/17 Fluticasone Propionate Nasal 1 spr NS BID PRN 08/05/17 09/24/17 [Flonase] Lisinopril 2.5 mg PO DAILY 08/05/17 09/24/17 Simvastatin [Zocor] 10 mg PO HS 08/05/17 09/24/17 Prilosec Otc 20.6 mg PO DAILY 09/24/17 09/24/17 Previous Rx's Medication Instructions Recorded Metoprolol [Lopressor] 25 mg PO BID #60 tab 05/07/17 Allergies Allergy/AdvReac Type Severity Reaction Status Date / Time Penicillins Allergy Swelling Verified 07/11/16 04:38 of Lip/Tongue/Throat Sulfa (Sulfonamide Allergy Hives Verified 07/11/16 04:38 Antibiotics) All systems ED: reviewed and negative except as stated. Constitutional: Denies: fever Cardiovascular: Denies: chest pain Respiratory: Reports: cough Gastrointestinal: Denies: abdominal pain, nausea, vomiting Neurological: Reports: headache. Denies: numbness, paresthesias Past Medical History - Past Medical History Attestation: Yes The following information was validated with the patient. Source: patient Medical history: Reports: asthma, atrial fibrillation, GERD, hypertension, thyroid disease Surgical history: Reports: , hysterectomy Psychiatric history: Reports: anxiety, panic disorder - Social History Smoking Status: Former smoker Smokeless Tobacco Status: No Alcohol use: Reports: none Drug use: Reports: none Physical Exam - General Limitations: no limitations General appearance: alert, in no apparent distress - Head Head exam: atraumatic, normocephalic - Eye Eye exam: Present: normal appearance, PERRL, EOMI - ENT ENT exam: normal exam - Neck Neck exam: Present: normal inspection, full ROM - Chest Chest inspection: Present: normal inspection, symmetric chest wall rise - Respiratory Respiratory exam: Present: normal lung sounds bilaterally - Cardiovascular Cardiovascular exam: Present: regular rate, normal rhythm, normal heart sounds - Abdominal Exam Abdominal exam: Present: soft, Non-Tender. Absent: tenderness - Extremities Exam Extremities exam: Present: normal inspection, full ROM - Expanded Upper Extremity Exam Shoulder exam: Present: normal inspection, full ROM Arm exam: Present: normal inspection, full ROM Elbow exam: Present: normal inspection, full ROM Forearm/Wrist exam: Present: normal inspection, full ROM Hand exam: Present: normal inspection, full ROM Vascular exam: Normal: radial pulse - Expanded Lower Extremity Exam Hip/Pelvis exam: Present: normal inspection, full ROM Upper leg exam: Present: normal inspection, full ROM Knee exam: Present: normal inspection, full ROM Lower leg exam: Present: normal inspection, full ROM Ankle exam: Present: normal inspection, full ROM Foot/toe exam: Present: normal inspection, full ROM Neurovascular/Tendon exam: Absent: motor deficit, sensory deficit - Neurological Exam Neurological exam: Present: alert, CN II-XII intact. Absent: motor sensory deficit - Expanded Neurological Exam Speech: Present: fluid speech Cranial nerves: EOM function (II, III, IV, ): Normal, facial sensation (V): Normal, spinal accessory function (XI): Normal, tongue deviation (XII): Normal Motor strength - LUE: 5/5 Motor strength - RUE: 5/5 Motor strength - LLE: 5/5 Motor strength - RLE: 5/5 Sensory exam upper extremity: light touch: Normal Sensory exam lower extremity: light touch: Normal Coma Scale Eye Opening: Spontaneous Coma Scale Motor Response: Obeys Commands Coma Scale Verbal Response: Oriented Coma Scale Total: 15 - Skin Skin exam: Present: warm, dry, intact Course Course Narrative: Patient seen and examined. Vital signs reviewed. We will obtain a CT scan of the head as well as an EKG and electrolytes. Patient ordered Antivert for vertigo. - Reevaluation(s) Reevaluation #1: Attempted to stand the patient ambulated here. She is very weak and ataxic with walking. We will discuss with neurology. Patient does not feel comfortable going home. - Consultations Consultation #1: I spoke with the on-call neurologist Dr. Ferrell. Discussed the patient's history exam imaging and labs so far. He agrees with MRI of the head for evaluation of posterior fossa etiology. Patient will be admitted to the hospitalist service with neurologic consultation. Does recommend to give a dose of aspirin here. Vital Signs Temperature 98.3 F 09/24/17 14:14 Pulse Rate 86 09/24/17 14:14 Respiratory Rate 18 09/24/17 14:14 Blood Pressure 118/80 09/24/17 14:14 O2 Sat by Pulse Oximetry 97 09/24/17 14:14 Temperature 98.3 F 09/24/17 14:14 Pulse Rate 86 09/24/17 14:14 Respiratory Rate 18 09/24/17 14:14 Blood Pressure 118/80 09/24/17 14:14 O2 Sat by Pulse Oximetry 97 09/24/17 14:14 Oxygen Delivery Oxygen Delivery Nasal Cannula Dizziness - MDM Narrative Medical decision making narrative: 57-year-old female presents to the ER due to vertigo. Reports symptoms started this afternoon. She is nonfocal here however she is ataxic with standing and has difficulty ambulating. Denies any head injury. CT scan of the head unremarkable. Patient was given Antivert and Valium here without improvement. Case discussed with neurology who will see in consultation. Admitted to the hospital service and given a dose of aspirin. - Lab Data Lab results reviewed: Yes I reviewed the patient's lab results. Result diagrams: 09/24/17 15:56 09/24/17 15:56 Lab Results 09/24/17 09/24/17 09/24/17 Range/Units 15:54 15:56 15:56 WBC 6.7 (4.3-11.1) K/mcL RBC 3.51 L (3.82-4.97) M/mcL Hgb 11.0 L (11.5-15.4) g/dL Hct 34.6 L (35.3-44.9) % MCV 98.6 (83.0-100.0) fL MCH 31.3 (28.0-33.3) pg MCHC 31.8 (31.6-35.5) g/dL RDW 14.1 (11.5-14.5) % Plt Count 257 (140-400) K/mcL MPV 10.1 (9.4-12.4) fL Immature Gran % 0.1 (0-4) % Seg Neutrophils % 60.0 % Lymphocytes % 30.3 % Monocytes % 9.0 % Eosinophils % 0.0 % Basophils % 0.6 % Neutrophils # 4.0 (1.6-8.9) K/mcL Lymphocytes # 2.0 (0.6-4.6) K/mcL Monocytes # 0.6 (0.0-1.3) K/mcL Eosinophils # 0.0 (0.0-0.6) K/mcL Basophils # 0.0 (0.0-0.2) K/mcL Sodium 137 (136-145) mEq/L Potassium 4.1 (3.5-5.1) mEq/L Chloride 105 (98-107) mEq/L Carbon Dioxide 28 (23-29) mEq/L BUN 15 (6-20) mg/dL Creatinine 0.83 (0.60-1.20) mg/dL Est GFR ( Amer) > 60 (> 60) Est GFR (Non-Af Amer) > 60 (> 60) BUN/Creatinine Ratio 18 (6-26) Glucose 106 H (70-105) mg/dL Calculated Osmolality 285 (280-300) Calcium 9.2 (8.6-10.3) mg/dL Magnesium 2.1 (1.6-2.6) mg/dL Troponin I < 0.03 (< 0.04) ng/mL - Radiology Data Radiology results reviewed: Yes I reviewed the patient's radiology results. Head CT 09/24/17 14:55 IMPRESSION: 1. No acute intracranial abnormality. 2. Paranasal sinus mucosal disease. D/ / Pavel Cotto MD / Pavel Cotto MD Interpreting Provider: Pavel Cotto MD Chest X-Ray 09/24/17 16:55 IMPRESSION: Clear lungs. D/ / Dominguez Chau MD / Dominguez Chau MD Interpreting Provider: Dominguez Chau MD - EKG Data EKG attestation: Yes I reviewed and interpreted this EKG. EKG results narrative: EKG demonstrates sinus rhythm with a rate of 77 bpm. Normal axis. Normal intervals. Normal R-wave progression. No gross ST elevations. No acute ischemic findings. No significant changes from previous EKG dated 08/04/17. S.B.Girma - Jeni.Amy Situation: Demographics, MOA Background: Presenting Complaint, Relevant PMH, Meds, & Allergies Assessment: Course and respsone to treatment, Exam Concerns, Patient/Family Expectation, Pertinant Lab Results Recommendation: Barrier(s) to disposition, Recommendation based on pending studies, treatments, or consults SShelliBEmilee Report Given to: Dr. Brandt Sheikh Repor Time: 18:22
[2017-09-24] MEDS ORDERED: diazePAM 10 MG/2 ML SYRINGE IV ONE (16:00)
[2017-09-24] MEDS ORDERED: Ondansetron 4 MG/2 ML VIAL IVP ONE (16:00)
[2017-09-24 16:24] LABS: BUN/Creatinine Ratio 18 (6-26); Blood Urea Nitrogen 15 mg/dL (6-20); Calcium 9.2 mg/dL (8.6-10.3); Carbon Dioxide 28 mEq/L (23-29); Chloride 105 mEq/L (98-107); Glucose 106 mg/dL (70-105); Magnesium 2.1 mg/dL (1.6-2.6); Osmolality,Calculated 285 (280-300); Potassium 4.1 mEq/L (3.5-5.1); Sodium 137 mEq/L (136-145); eGFR For African Americans > 60 (> 60); eGFR For Non-African Americans > 60 (> 60)
[2017-09-24] MEDS ORDERED: diazePAM 5 MG TABLET PO ONE (16:28)
[2017-09-24] MEDS ORDERED: Ondansetron ODT 4 MG TAB.RAPDIS SL ONE (16:28)
--- NOTE | 2017-09-24 16:34 | Emergency Department Note ---
START Narrative - START START: I examined this patient and my medical decision-making was reviewed with the Resident Physician. I agree with the documented findings, disposition and treatment plan as described except to the extent set forth below. 57 yo F here for vertigo type sx. no focal motor or sensory deficits started at home while watching a movie suddenly no hx of such in past no cp or sob no abd pain ct head neg check labs antivert valium, zofran recheck after possible admission
[2017-09-24 16:36] LABS: Basophils % 0.6 %; Hematocrit 34.6 % (35.3-44.9); Immature Granulocytes % 0.1 % (0-4); Lymphocytes % 30.3 %; Mean Corpuscular HGB Conc 31.8 g/dL (31.6-35.5); Mean Corpuscular Hemoglobin 31.3 pg (28.0-33.3); Mean Corpuscular Volume 98.6 fL (83.0-100.0); Mean Platelet Volume 10.1 fL (9.4-12.4); Monocytes # 0.6 K/mcL (0.0-1.3); Platelet Count 257 K/mcL (140-400); Red Blood Count 3.51 M/mcL (3.82-4.97); Red Cell Distribution Width 14.1 % (11.5-14.5)
[2017-09-24] MEDS ORDERED: Aspirin 81 MG TAB.CHEW PO ONE (17:53)
[2017-09-24] MEDS ORDERED: Naloxone 0.4 MG/ML INJ IVP PRN (21:00)
[2017-09-24] MEDS ORDERED: Ondansetron 4 MG/2 ML VIAL IVP PRN (21:00)
--- NOTE | 2017-09-24 22:50 | Internal Med History&Physical ---
<Naina Eisenberg - Last Filed: 09/24/17 23:03> Date of Encounter: 09/24/17 Time of Encounter: 21:00 Assessment and Plan (1) Vertigo Current visit: Yes Status: Acute 1 patient has sudden onset of vertigo which began today while at rest. 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 Colunga is a 57 year old female past medical history of asthma atrial fibrillation and GERD hypertension and thyroid disease history of WPW. According to the patient approximate 5 days ago she began to experience upper respiratory symptoms cough stuffy nose she denies any fevers chills nausea vomiting or diarrhea. She did not take any lltx-tga-[id number] medications. She denies any numbness tingling or vision changes Today she was watching television when she began to experience sudden onset of vertigo. She was unable to stand or walk she denied any falls or loss of consciousness. She did call EMS and was transported to ER for evaluation CT of head with no intracranial abnormalities, lab work was unremarkable EKG with sinus rhythm. She was given Antivert and Valium with little improvement. Patient was nonfocal however she was ataxic with standing and was unstable ambulating. ER physician did speak with neurology he will see patient up on consultation. Patient has been admitted for further workup and evaluation. Presently patient continues to experience vertigo however she does say it has improved since receiving medication. Cranial nerves II through XII are intact no focal deficits, Romberg was positive, Hallpike maneuver was negative. She denies any pain or discomfort and is hemodynamically stable at this time I did review this case with Dr. Lara who agrees with plan Past Med Surg Social Fam HX - Past Medical History Medical history: asthma, atrial fibrillation, GERD, hypertension, thyroid disease Psychiatric history: anxiety, panic disorder - Past Surgical History Surgical History: , hysterectomy - Social History Smoking Status: Former smoker Smokeless Tobacco Status: No Alcohol use: none Drug use: none - Family History Mother Hx Family Cardiac Disorders: No Hx Family Respiratory Disorders: Yes Father Hx Family Cardiac Disorders: No Internal Medicine - H&P: Meds Aspirin [Lo-Dose Aspirin EC] 81 mg PO DAILY 05/04/17 [History] Dapsone 100 mg PO DAILY 05/04/17 [History] Levothyroxine Sodium [Levoxyl] 125 mcg PO DAILY 05/04/17 [History] Metoprolol [Lopressor] 25 mg PO BID #60 tab 05/07/17 [Rx] Fluocinonide 1 appl TP DAILY 08/05/17 [History] Fluticasone Propionate Nasal [Flonase] 1 spr NS BID PRN 08/05/17 [History] Lisinopril 2.5 mg PO DAILY 08/05/17 [History] Simvastatin [Zocor] 10 mg PO HS 08/05/17 [History] Prilosec Otc 20.6 mg PO DAILY 09/24/17 [History] 3 Allergy/AdvReac Type Severity Reaction Status Date / Time Penicillins Allergy Swelling Verified 07/11/16 04:38 of Lip/Tongue/Throat Sulfa (Sulfonamide Allergy Hives Verified 07/11/16 04:38 Antibiotics) All Systems PM: A 10-system review of systems was performed and is negative for pertinent findings except as documented above in the HPI. - Constitutional Constitutional: no chills, no fever(s), no night sweats - EENT Eyes: no change in vision, no discharge, no pain, no photophobia Nose, mouth and throat: no dysphagia, no nasal discharge, no neck pain, no sore throat - Cardiovascular Cardiovascular ROS IM: no chest pain, no diaphoresis, no dyspnea, no lightheadedness, no palpitations, no syncope - Respiratory Respiratory: cough, chest congestion, no dyspnea, no wheezing, no excessive phlegm production - Gastrointestinal Gastrointestinal: no abdominal pain, no diarrhea, no hematemesis, no hematochezia, no melena, no nausea, no vomiting - Genitourinary Genitourinary: no change in urinary stream, no dysuria, no flank pain, no hematuria - Musculoskeletal Musculoskeletal ROS IM: no numbness, no tingling - Integumentary Integumentary IM: no rash, no unusual bruising - Neurological Neurological ROS: vertigo - Hematologic/Lymphatic Hematologic/Lymphatic: no easy bruising - Constitutional Vitals: Temp Pulse Resp BP Pulse Ox 98.3 F 86 18 118/80 97 09/24/17 14:14 09/24/17 14:14 09/24/17 14:14 09/24/17 14:14 09/24/17 14:14 General appearance: Present: A&O X 3 - Head Head exam: Present: atraumatic, normocephalic - Eye Eye exam: Present: PERRL, conjuntiva pink, sclera anicteric Pupils: Present: PERRL - Neck Neck exam general surgery: Present: supple, trachea midline. Absent: lymphadenopathy - Respiratory Respiratory exam: Present: CTAB. Absent: accessory muscle use, rales, rhonchi, wheezes - Cardiovascular Cardiovascular exam: Present: RRR, +S1, +S2. Absent: diastolic murmur, gallop, rubs, systolic murmur - GI/Abdominal GI/Abdominal exam: Present: normal bowel sounds, soft, no peritoneal signs. Absent: distended, tenderness - Extremities Exam Extremities exam: Present: warm, radial pulses palpable and symmetrical. Absent : calf tenderness, cyanotic, pedal edema - Neurological Exam Neurological exam: Present: CN II-XII intact, oriented X3, no focal deficits. Absent: pronater drift, facial droop, speech deficit - Expanded Neurological Exam Neurological exam expanded: Present: ataxia Patient oriented to: Present: person, place, time Cranial Nerves: EOM's intact PM: Normal, nystagmus PM: Normal, tongue deviation PM: Normal Ataxia: Present: yes Cerebellar function: heel to serrano: Normal, Romberg: Normal Neuro motor strength exam: LUE: 5, RUE: 5, LLE: 5, RLE: 5 Coma Scale Eye Opening: Spontaneous Coma Scale Motor Response: Obeys Commands Coma Scale Verbal Response: Oriented Coma Scale Total: 15 - Skin Skin exam: Present: dry, intact Internal Med - H&P Results - Labs CBC & Chem 7: 09/24/17 15:56 09/24/17 15:56 Labs: Cardiac Enzymes 09/24/17 Range/Units 21:10 Troponin I < 0.03 (< 0.04) ng/mL - EKG Data EKG shows normal: sinus rhythm - EKG Data Prior EKG available for review: yes When compared to previous EKG: there is no significant change - Diagnostic Studies Other Images Additional comments: Head CT 09/24/17 14:55 IMPRESSION: 1. No acute intracranial abnormality. 2. Paranasal sinus mucosal disease. D/ / Pavel Cotto MD / Pavel Cotto MD Interpreting Provider: Pavel Cotto MD Chest X-Ray 09/24/17 16:55 IMPRESSION: Clear lungs. D/ / Dominguez Chau MD / Dominguez Chau MD Interpreting Provider: Dominguez Chau MD <Moses Lara - Last Filed: 09/25/17 03:52> Date of Encounter: 09/25/17 Internal Medicine - H&P: HPI History of present illness: Ms. Colunga is a 57 year old female All Systems PM: A 10-system review of systems was performed and is negative for pertinent findings except as documented above in the HPI. - Constitutional Vitals: Temp Pulse Resp BP Pulse Ox 98.6 F 80 17 107/70 93 09/25/17 02:44 09/25/17 02:44 09/25/17 02:44 09/25/17 02:44 09/25/17 02:44 Internal Med - H&P Results - Labs CBC & Chem 7: 09/24/17 15:56 09/24/17 15:56 Labs: Cardiac Enzymes 09/24/17 Range/Units 21:10 Troponin I < 0.03 (< 0.04) ng/mL - Attending Attestation I have seen and examined this pt independently. I have discussed with STANISLAW Eisenberg regarding the management plan. Agree with the documentation.
[2017-09-25 04:49] LABS: Basophils # 0.1 K/mcL (0.0-0.2); Hematocrit 32.1 % (35.3-44.9); Hemoglobin 9.9 g/dL (11.5-15.4); Immature Granulocytes % 0.2 % (0-4); Lymphocytes # 2.2 K/mcL (0.6-4.6); Mean Corpuscular HGB Conc 30.8 g/dL (31.6-35.5); Mean Corpuscular Hemoglobin 30.5 pg (28.0-33.3); Mean Corpuscular Volume 98.8 fL (83.0-100.0); Mean Platelet Volume 10.3 fL (9.4-12.4); Monocytes # 0.5 K/mcL (0.0-1.3); Monocytes % 10.1 %; Neutrophils # 2.4 K/mcL (1.6-8.9); Platelet Count 260 K/mcL (140-400); Red Blood Count 3.25 M/mcL (3.82-4.97); Red Cell Distribution Width 13.8 % (11.5-14.5); Segmented Neutrophils % 45.7 %
[2017-09-25 05:05] LABS: BUN/Creatinine Ratio 20 (6-26); Blood Urea Nitrogen 18 mg/dL (6-20); Calcium 8.8 mg/dL (8.6-10.3); Carbon Dioxide 30 mEq/L (23-29); Chloride 104 mEq/L (98-107); Chol/HDL Ratio 3.7 (0-4.9); Cholesterol 142 mg/dL (< 200); Glucose 114 mg/dL (70-105); HDL Cholesterol 38 mg/dL (40-59); LDL Cholesterol,Calculated 85 mg/dL (0-99); Osmolality,Calculated 289 (280-300); Potassium 3.8 mEq/L (3.5-5.1); Sodium 138 mEq/L (136-145); Triglycerides 96 mg/dL (< 150); eGFR For African Americans > 60 (> 60); eGFR For Non-African Americans > 60 (> 60)
[2017-09-25 05:12] LABS: Bilirubin,Urine Negative (Negative); Blood,Urine Negative (Negative); Clarity,Urine Clear (Clear); Color,Urine Dark Yellow (Yellow); Glucose,Urine (UA) Normal (Normal); Ketones,Urine Negative (Negative); Leukocyte Esterase,Urine Negative (Negative); Nitrite,Urine Negative (Negative); PH,Urine 6.5 pH Units (5.0-8.0); Protein,Urine Negative (Neg-Trace); Specific Gravity,Urine 1.013 (1.010-1.025)
[2017-09-25] MEDS: *HR* Enoxaparin 40 MG/0.4 ML SYRINGE SQ SCH (06:03)
[2017-09-25] MEDS: Aspirin Enteric Coated 81 MG Tablet PO SCH (10:42)
--- NOTE | 2017-09-25 10:43 | Neurology - Consult Note ---
<OsitoSaul may - Last Filed: 09/25/17 10:51> Date of Encounter: 09/25/17 Time of Encounter: 10:39 Assessment and Plan (1) Dizziness Current Visit: Yes Status: Acute sudden onset dizziness. Patient has trouble walking. no head trauma or loss of consciousness. CT head shows paranasal sinus mucosal diseae, no acute abnormality. Etiology likely secondary to BPPV, but must rule out posterior CVA Plan: MRI brain pending continue with antivert fall precautions. History of Present Illness HPI: Ms. Colunga is a 57 year old female with PMHx of asthma, Afib, GERD, HTN, hypothyroidism. patient arrived to [facility] with sudden onset of dizziness. patient states that she was sitting in the room watching a movie when all of a sudden she got really dizzy and could not stand up or walk. she states she feels as if both the room was spinning and her head was spinning. she denies having any falls, head trauma, or loss of consciousness. patient was given antivert with some improvement. she denies nausea, vomiting, diarrhea. she did have fevers and chills with upper respiratory symptoms earlier this week. the fevers have since resolved. she denies chest pain or shortness of breath. Past Med Surg Social Fam HX - Past Medical History Medical history: asthma, atrial fibrillation, GERD, hypertension, thyroid disease Psychiatric history: anxiety, panic disorder - Past Surgical History Surgical History: , hysterectomy - Social History Smoking Status: Former smoker Smokeless Tobacco Status: No Alcohol use: none Drug use: none - Family History Mother Hx Family Cardiac Disorders: No Hx Family Respiratory Disorders: Yes Father Hx Family Cardiac Disorders: No Medications and Allergies Aspirin [Lo-Dose Aspirin EC] 81 mg PO DAILY 05/04/17 [History] Dapsone 100 mg PO DAILY 05/04/17 [History] Levothyroxine Sodium [Levoxyl] 125 mcg PO DAILY 05/04/17 [History] Metoprolol [Lopressor] 25 mg PO BID #60 tab 05/07/17 [Rx] Fluocinonide 1 appl TP DAILY 08/05/17 [History] Fluticasone Propionate Nasal [Flonase] 1 spr NS BID PRN 08/05/17 [History] Lisinopril 2.5 mg PO DAILY 08/05/17 [History] Simvastatin [Zocor] 10 mg PO HS 08/05/17 [History] Prilosec Otc 20.6 mg PO DAILY 09/24/17 [History] 3 Allergy/AdvReac Type Severity Reaction Status Date / Time Penicillins Allergy Swelling Verified 07/11/16 04:38 of Lip/Tongue/Throat Sulfa (Sulfonamide Allergy Hives Verified 07/11/16 04:38 Antibiotics) All Systems: A 10-system review of systems was performed and is negative for pertinent findings except as documented above in the HPI. - Constitutional Constitutional ROS IM: as per HPI Physical Examination - Vital Signs Vital Signs: Initial Vital Signs Temp Pulse Resp BP Pulse Ox 98.3 F 86 18 118/80 97 09/24/17 14:14 09/24/17 14:14 09/24/17 14:14 09/24/17 14:14 09/24/17 14:14 - Constitutional General appearance: comfortable - Neurologic Sensorimotor examination: intact, other (patient was dizzy upon standing up. she had positive rhomberg sign. could not walk without getting dizzy. 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 Motor examination - left side: 4/5: deltoids, biceps, triceps, wrist flexion, wrist extension, hip flexors Detailed sensory examination: intact Reflexes: Brachioradialis: 2+, Patella: 2+, Achilles: 2+ Mental Status Examination: awake, alert, oriented to person, oriented to place, oriented to time, follows commands appropriately, answers questions appropriately, no aphasia, lethargic Cranial nerve examination: PERRL, EOMI, visual fuentes intact, sensory to face intact Results - Laboratory Findings CBC and BMP: 09/25/17 03:34 09/25/17 03:34 Abnormal lab findings: Abnormal lab results RBC 3.25 M/mcL (3.82-4.97) L 09/25/17 03:34 Hgb 9.9 g/dL (11.5-15.4) L 09/25/17 03:34 Hct 32.1 % (35.3-44.9) L 09/25/17 03:34 MCHC 30.8 g/dL (31.6-35.5) L 09/25/17 03:34 Carbon Dioxide 30 mEq/L (23-29) H 09/25/17 03:34 Glucose 114 mg/dL (70-105) H 09/25/17 03:34 HDL Cholesterol 38 mg/dL (40-59) L 09/25/17 03:34 Urine Urobilinogen 2.0 mg/dL (Normal) H 09/25/17 04:40 Consult Discharge Plan - Plan Referrals: Erin Sumner DO [Primary Care Provider] - <William Ferrell - Last Filed: 09/25/17 16:52> Date of Encounter: 09/25/17 Time of Encounter: 16:45 Assessment and Plan (1) Dizziness Current Visit: Yes Status: Acute I agree with the above. Patient's MRI scan of the brain was negative. No evidence of posterior fossa ischemia specifically no evidence of brainstem or cerebellar infarct. Neurologic examination finds no nystagmus. I suspect that it is likely experiencing vertigo due to a peripheral etiology, versus syncope associated with hypotension. I find no evidence to support seizure or any other primary neurologic etiology. I do not feel any other testing is necessary from a neurologic perspective. 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 This is likely the explanation for her speech impediment. We will reevaluate her at your request. History of Present Illness HPI: Ms. Colunga is a 57 year old female as seen and examined for neurologic consultation secondary to a "dizziness". The patient was seen and examined independently. Case was discussed with the neurology resident. I agree with her history as stated above. She denies any associated headache, she denied any nausea associated with the initial event. No diplopia, or numbness no speech difficulties. Since admission however patient has had extremely hypotensive, blood pressure readings, some of which were 70 systolic. All Systems: A 10-system review of systems was performed and is negative for pertinent findings except as documented above in the HPI. Review of Systems: 10 point review of systems is consistent with a history of present illness and otherwise negative. Physical Examination - Vital Signs Vital Signs: Initial Vital Signs Temp Pulse Resp BP Pulse Ox 98.3 F 86 18 118/80 97 09/24/17 14:14 09/24/17 14:14 09/24/17 14:14 09/24/17 14:14 09/24/17 14:14 - Constitutional General appearance: comfortable - Neurologic Sensorimotor examination: intact, other Reflexes: Biceps: 2+, Triceps: 2+ Mental Status Examination: no agnosia, no aproxia, lucid Cranial nerve examination: no facial asymmetry is present, no dysarthria Results - Laboratory Findings CBC and BMP: 09/25/17 03:34 09/25/17 03:34 Abnormal lab findings: Abnormal lab results RBC 3.25 M/mcL (3.82-4.97) L 09/25/17 03:34 Hgb 9.9 g/dL (11.5-15.4) L 09/25/17 03:34 Hct 32.1 % (35.3-44.9) L 09/25/17 03:34 MCHC 30.8 g/dL (31.6-35.5) L 09/25/17 03:34 Carbon Dioxide 30 mEq/L (23-29) H 09/25/17 03:34 Glucose 114 mg/dL (70-105) H 09/25/17 03:34 HDL Cholesterol 38 mg/dL (40-59) L 09/25/17 03:34 Urine Urobilinogen 2.0 mg/dL (Normal) H 09/25/17 04:40
--- NOTE | 2017-09-25 12:31 | Internal Med Progress Note ---
Date of Encounter: 09/25/17 Time of Encounter: 10:00 - Assessment and plan (1) Vertigo Current Visit: Yes Status: Acute Assessment and plan: presented with sensation of room spinning and ataxia on day of presentation. Head CT nonacute, Brain MRI without acute abnormality. TTE with EF 60%, no valvular dysfunction. Etiology unknown at this time, could possibly be BPPV and /or orthostatic hypotension. BP soft/borderline. Symptoms worse when going from a lying/sitting position to standing. Continue meclizine. Holding home BP medication. Neurology consulted (2) Hypertension Current Visit: No Status: Chronic Assessment and plan: per hx. On BB, ERROL at home. BP has been soft/borderline with SBP is in low 100s to 90s. Hypotension could be possibly contributing to above vertigo. Holding home BP medications at this time. Resume home BB at lower dose with hold parameters. Qualifiers: Hypertension type: essential hypertension Qualified Code(s): I10 - Essential (primary) hypertension (3) Hypothyroidism Current Visit: No Status: Chronic Assessment and plan: per hx. Cont home Levothyroxine. 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 Cont home BB at lower dose due to hypotension. (5) DVT prophylaxis Current Visit: No Status: Acute Assessment and plan: lovenox - Subjective Interval history: Seen and came in at bedside. Patient is new to me, information obtained from chart review and patient report. Patient still reports intermittent lightheadedness and dizziness. Symptoms worse when she goes from a sitting or lying position to standing. No CP, no SOB - Constitutional Vitals: Temp Pulse Resp BP Pulse Ox 97.7 F 75 16 110/68 93 09/25/17 10:41 09/25/17 10:41 09/25/17 10:41 09/25/17 10:41 09/25/17 10:41 General appearance: Present: A&O X 3, pleasant, no acute distress - Head Head exam: Present: atraumatic, normocephalic - Eye Eye exam: Present: PERRL, conjuntiva pink, sclera anicteric Pupils: Present: PERRL - Neck Neck exam general surgery: Present: supple, trachea midline. Absent: lymphadenopathy - Respiratory Respiratory exam: Present: CTAB. Absent: accessory muscle use, rales, rhonchi, wheezes - Cardiovascular Cardiovascular exam: Present: RRR, +S1, +S2. Absent: diastolic murmur, gallop, rubs, systolic murmur - GI/Abdominal GI/Abdominal exam: Present: normal bowel sounds, soft, no peritoneal signs. Absent: distended, tenderness - Extremities Exam Extremities exam: Present: warm, radial pulses palpable and symmetrical. Absent : calf tenderness, cyanotic, pedal edema - Neurological Exam Neurological exam: Present: CN II-XII intact, oriented X3, no focal deficits. Absent: pronater drift, facial droop, speech deficit - Skin Skin exam: Present: dry, intact Internal Medicine: Result - Labs CBC & Chem 7: 09/25/17 03:34 09/25/17 03:34 Labs: Short CBC 09/25/17 Range/Units 03:34 WBC 5.2 (4.3-11.1) K/mcL Hgb 9.9 L (11.5-15.4) g/dL Hct 32.1 L (35.3-44.9) % Plt Count 260 (140-400) K/mcL Neutrophils # 2.4 (1.6-8.9) K/mcL BMP 09/25/17 03:34 Sodium 138 Potassium 3.8 Chloride 104 Carbon Dioxide 30 H BUN 18 Creatinine 0.92 Glucose 114 H Calcium 8.8 Cardiac Enzymes 09/24/17 09/25/17 09/25/17 Range/Units 21:10 03:34 10:25 Troponin I < 0.03 < 0.03 < 0.03 (< 0.04) ng/mL Urine 09/25/17 Range/Units 04:40 Urine Color Dark Yellow (Yellow) Urine Clarity Clear (Clear) Urine pH 6.5 (5.0-8.0) pH Units Ur Specific [place] 1.013 (1.010-1.025) Urine Protein Negative (Neg-Trace) mg/dL Urine Glucose (UA) Normal (Normal) mg/dL - Impressions Impressions Brain MRI 09/25/17 08:02 IMPRESSION: No acute intracranial abnormality. Moderate duque sinus disease. D/ / 09/25/2017 10:08:37 Lenny Rhodes MD / carlos Interpreting Provider: Lenny Rhodes MD Echocardiogram 09/25/17 22:37 Impressions: LVEF 60-65%. Normal right ventricular structure and function. No significant valvular dysfunction. No pulmonary hypertension. No PFO with saline contrast injection. Left Ventricular Wall Motion: Rest Echo Findings The mid inferior lateral and basal inferior lateral evans were not visualized. All other wall segments showed normal motion. Findings: Study Quality * Technically sub-optimal due to body habitus. ECG Findings * Normal sinus rhythm. Left Ventricle * LVEF 60-65%. * Mild left ventricular diastolic dysfunction. * Suboptimal PLAX measurements - probably normal LV size. Unable to determine wall thickness. Right Ventricle * Normal right ventricular structure and function. Left Atrium * Left atrium is not well visualized. Right Atrium * Right atrium is not well visualized. Aortic Valve * No aortic regurgitation. * Aortic valve not well visualized. * No aortic stenosis. Mitral Valve * Normal mitral valve structure. * No mitral regurgitation. * No mitral stenosis. Tricuspid Valve * Tricuspid valve not well visualized. * No tricuspid regurgitation. * Estimated RA pressure is 3 mmHg. * Estimated RVSP is 13 mmHg. * No pulmonary hypertension. Pulmonic Valve * Pulmonic valve is not well visualized. * No pulmonic stenosis. * No pulmonic regurgitation. Pulmonary Artery * Pulmonary artery not well visualized. Aorta * Not well visualized. Pericardium * There is no pericardial effusion present. Interatrial Septum * No evidence of PFO with agitated saline contrast. IVC * The IVC is not dilated. Consult Discharge Plan - Plan Referrals: Erin Sumner DO [Primary Care Provider] -
[2017-09-25] MEDS ORDERED: 0.9 % Sodium Chloride 1,000 ML ONE (14:52)
[2017-09-25] MEDS ORDERED: 0.9 % Sodium Chloride 1,000 ML IV ONE (15:28)
--- NOTE | 2017-09-25 20:11 | Electrocardiograph Report ---
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
[2017-09-25 20:27] LABS: Hematocrit 31.5 % (35.3-44.9); Hemoglobin 9.8 g/dL (11.5-15.4)
[2017-09-25] MEDS ORDERED: NON-FORMULARY MEDICATION 1 EACH EACH (Simvastatin [Zocor] 10 MG) PO SCH (21:00)
[2017-09-25] MEDS: Acetaminophen 325 MG TABLET PO PRN (21:05)
[2017-09-26] MEDS: Acetaminophen 325 MG TABLET PO PRN (03:07)
[2017-09-26] MEDS: Pantoprazole 40 MG VIAL IVP SCH ×2 (05:59→18:42)
[2017-09-26 09:02] LABS: Hematocrit 30.1 % (35.3-44.9); Hemoglobin 9.6 g/dL (11.5-15.4); Mean Corpuscular HGB Conc 31.9 g/dL (31.6-35.5); Mean Corpuscular Hemoglobin 31.1 pg (28.0-33.3); Mean Corpuscular Volume 97.4 fL (83.0-100.0); Mean Platelet Volume 9.6 fL (9.4-12.4); Platelet Count 252 K/mcL (140-400); Red Blood Count 3.09 M/mcL (3.82-4.97); Red Cell Distribution Width 13.8 % (11.5-14.5)
[2017-09-26] MEDS: *HR* Enoxaparin 40 MG/0.4 ML SYRINGE SQ SCH (10:02)
[2017-09-26] MEDS: Aspirin Enteric Coated 81 MG Tablet PO SCH (10:03)
--- NOTE | 2017-09-26 12:10 | Gastroenterology Consult Note ---
Date of Encounter: 09/26/17 Time of Encounter: 11:15 - Assessment and plan (1) BRBPR (bright red blood per rectum) Current Visit: Yes Status: Acute Assessment and plan: Pt reports large amount of BRBPR with occasional clots. Plan for colonoscopy tomorrow. Clear liquid diet today, no red or purple. NPO at midnight. If unable tolerate NuLytely please use MiraLAX prep. If not clear by 6 AM, give 2 tap water enemas. (2) GERD (gastroesophageal reflux disease) Current Visit: No Status: Acute Assessment and plan: Continue PPI and plan for EGD tomorrow. Keep NPO at midnight. Qualifiers: Esophagitis presence: esophagitis presence not specified Qualified Code(s) : K21.9 - Gastro-esophageal reflux disease without esophagitis - Time Spent With Patient Total time spent is greater than 50% in coordination of care (as documented) at patient's floor/unit and/or counseling patient: GI History of Present Illness - Data of Consult Patient: new to practice Consult date: 09/26/17 Requesting Physician: Arianna Guzman CNP - Consult Narrative Reason for consult: Blood in stool History of present illness: Ms. Colunga is a 57 year old female with PMHx of asthma, A fib, GERD, HTN, Castro- Parkinson-White syndrome who presented with c/o vertigo and was unable to stand or walk. She denies any loss of consciousness. CT head with no intracranial abnormalities. Neurology has been consulted. We were consulted for blood in stool. Hgb 11 on admission and this AM Hgb 9.6. Pt states she has been having large amount of BRBPR with occasional clots. Procedures: EGD 11/12/2002 Dr. Franco: Reflux esophagitis, no River's esophagus. NSAIDs: ASA Anticoagulation: None Past Med Surg Social Fam HX - Past Medical History Medical history: asthma, atrial fibrillation, GERD, hypertension, thyroid disease Psychiatric history: anxiety, panic disorder - Past Surgical History Surgical History: , hysterectomy - Social History Smoking Status: Former smoker Smokeless Tobacco Status: No Alcohol use: none Drug use: none - Family History Mother Hx Family Cardiac Disorders: No Hx Family Respiratory Disorders: Yes Father Hx Family Cardiac Disorders: No - Gastrointestinal Gastrointestinal: Present: as per HPI - Constitutional Constitutional: as per HPI - EENT Eyes: as per HPI Ears: Present: as per HPI Nose, mouth and throat: Present: as per HPI - Cardiovascular Cardiovascular ROS: Present: as per HPI - Respiratory Respiratory IM: Present: as per HPI - Genitourinary Genitourinary: Absent: change in color, Urinary frequency - Neurological ROS Neurological GI: Present: as per HPI - Hematologic/Lymphatic Hematologic/Lymphatic pediatric: Present: as per HPI - Musculoskeletal Musculoskeletal ROS GI: Present: as per HPI - Integumentary Integumentary GI: Present: as per HPI - Psychiatric ROS Psychiatric GI: Present: as per HPI - Endocrine Endocrine IM: Present: as per HPI - Constitutional Vitals: Temp Pulse Resp BP Pulse Ox 98.2 F 98 16 137/79 95 09/26/17 11:06 09/26/17 11:06 09/26/17 11:06 09/26/17 11:06 09/26/17 11:06 General appearance: Present: cooperative, A&O X 3, no acute distress, answers questions appropriately - Head Head exam: Present: atraumatic, normocephalic - Eye Eye exam: Present: normal appearance, sclera anicteric - ENT ENT exam: Present: mucous membranes dry - Neck Neck exam general surgery: Present: normal inspection, trachea midline - Respiratory Respiratory exam: Present: CTAB. Absent: rales, rhonchi - Cardiovascular Cardiovascular exam: Present: RRR, +S1, +S2 - GI/Abdominal GI/Abdominal exam: Present: soft, tenderness, no peritoneal signs. Absent: distended, firm, guarding - Rectal Rectal exam: Present: deferred - Extremities Exam Extremities exam: Present: warm - Neurological Exam Neurological exam: Present: no focal deficits - Psychiatric Psychiatric exam: Present: normal affect, normal mood - Skin Skin exam: Present: dry, intact, normal color, warm Results - Labs CBC & Chem 7: 09/26/17 08:52 09/25/17 03:34 Labs: Last Result Calcium 8.8 mg/dL (8.6-10.3) 09/25/17 03:34 Troponin I < 0.03 ng/mL (< 0.04) 09/25/17 10:25 Triglycerides 96 mg/dL (< 150) 09/25/17 03:34 Entire Visit Hgb 9.6 g/dL (11.5-15.4) L 09/26/17 08:52 Hct 30.1 % (35.3-44.9) L 09/26/17 08:52 Consult Discharge Plan - Plan Referrals: Erin Sumner DO [Primary Care Provider] -
--- NOTE | 2017-09-26 16:10 | Internal Med Progress Note ---
Date of Encounter: 09/26/17 Time of Encounter: 16:08 - Assessment and plan (1) Vertigo Current Visit: Yes Status: Acute Assessment and plan: presented with sensation of room spinning and ataxia on day of presentation. Head CT nonacute, Brain MRI without acute abnormality. TTE with EF 60%, no valvular dysfunction. Etiology unknown at this time, could possibly be BPPV and /or orthostatic hypotension. BP soft/borderline. Symptoms worse when going from a lying/sitting position to standing. Continue meclizine. Holding home BP medication. Neurology following. No sx recurrence as of 09/26/2017. (2) Hypertension Current Visit: No Status: Chronic Assessment and plan: per hx. On BB, ERROL at home. BP has been soft/borderline with SBP is in low 100s to 90s. Hypotension could be possibly contributing to above vertigo. BP improved/stabilized. Cont home BB at lower dose Qualifiers: Hypertension type: essential hypertension Qualified Code(s): I10 - Essential (primary) hypertension (3) Hypothyroidism Current Visit: No Status: Chronic Assessment and plan: per hx. Cont home Levothyroxine. Qualifiers: Hypothyroidism type: unspecified Qualified Code(s): E03.9 - Hypothyroidism , unspecified (4) WPW (Aflct-Icadohitg-Uejrg syndrome) Current Visit: No Status: Chronic Assessment and plan: per hx. 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 Cont home BB at lower dose due to hypotension. Monitor on tele (5) BRBPR (bright red blood per rectum) Current Visit: Yes Status: Acute Assessment and plan: Pt reports large amount of BRBPR with occasional clots. Plan for colonoscopy tomorrow. Clear liquid diet today, no red or purple. NPO at midnight. If unable tolerate NuLytely please use MiraLAX prep. If not clear by 6 AM, give 2 tap water enemas. (6) DVT prophylaxis Current Visit: No Status: Acute Assessment and plan: SCD - Subjective Interval history: Seen and came in at bedside. Says she feels better overall is still having loose stool with bright red blood. Patient reports previous history of multiple gastric ulcers. No previous GI bleed. No further syncope/vertigo. No chest pain or shortness of breath. - Constitutional Vitals: Temp Pulse Resp BP Pulse Ox 98.2 F 98 16 137/79 95 09/26/17 11:06 09/26/17 11:06 09/26/17 11:06 09/26/17 11:06 09/26/17 11:06 General appearance: Present: A&O X 3, pleasant, no acute distress - Head Head exam: Present: atraumatic, normocephalic - Eye Eye exam: Present: PERRL, conjuntiva pink, sclera anicteric Pupils: Present: PERRL - Neck Neck exam general surgery: Present: supple, trachea midline. Absent: lymphadenopathy - Respiratory Respiratory exam: Present: CTAB. Absent: accessory muscle use, rales, rhonchi, wheezes - Cardiovascular Cardiovascular exam: Present: RRR, +S1, +S2. Absent: diastolic murmur, gallop, rubs, systolic murmur - GI/Abdominal GI/Abdominal exam: Present: normal bowel sounds, soft, no peritoneal signs. Absent: distended, tenderness - Extremities Exam Extremities exam: Present: warm, radial pulses palpable and symmetrical. Absent : calf tenderness, cyanotic, pedal edema - Neurological Exam Neurological exam: Present: CN II-XII intact, oriented X3, no focal deficits. Absent: pronater drift, facial droop, speech deficit - Skin Skin exam: Present: dry, intact Internal Medicine: Result - Labs CBC & Chem 7: 09/26/17 08:52 09/25/17 03:34 Labs: Short CBC 09/25/17 09/26/17 Range/Units 20:22 08:52 WBC 8.0 D (4.3-11.1) K/mcL Hgb 9.8 L 9.6 L (11.5-15.4) g/dL Hct 31.5 L 30.1 L (35.3-44.9) % Plt Count 252 (140-400) K/mcL Consult Discharge Plan - Plan Referrals: Erin Sumner DO [Primary Care Provider] -
[2017-09-26] MEDS ORDERED: SODIUM CHLORIDE/NAHCO3/KCL/PEG 4,000 ML SOLN.RECON PO ONE (17:00)
[2017-09-26] MEDS ORDERED: Polyethylene Glycol 3350 255 GM POWDER PO ONE (18:45)
[2017-09-27] MEDS: *HR* Enoxaparin 40 MG/0.4 ML SYRINGE SQ SCH (04:35)
[2017-09-27] MEDS: Pantoprazole 40 MG VIAL IVP SCH ×2 (05:09→18:28)
[2017-09-27] MEDS: Aspirin Enteric Coated 81 MG Tablet PO SCH (08:35)
--- NOTE | 2017-09-27 14:35 | Internal Med Progress Note ---
Date of Encounter: 09/27/17 Time of Encounter: 10:30 - Assessment and plan (1) Vertigo Current Visit: Yes Status: Acute Assessment and plan: presented with sensation of room spinning and ataxia on day of presentation. Head CT nonacute, Brain MRI without acute abnormality. TTE with EF 60%, no valvular dysfunction. Etiology unknown at this time, could possibly be BPPV and /or orthostatic hypotension. BP soft/borderline. Symptoms worse when going from a lying/sitting position to standing. Continue meclizine. Holding home BP medication. Neurology followed. No sx recurrence as of 09/26/2017. (2) Hypertension Current Visit: No Status: Chronic Assessment and plan: per hx. On BB, ERROL at home. BP has been soft/borderline with SBP is in low 100s to 90s. Hypotension could be possibly contributing to above vertigo. BP improved/stabilized. Cont home BB at lower dose Qualifiers: Hypertension type: essential hypertension Qualified Code(s): I10 - Essential (primary) hypertension (3) Hypothyroidism Current Visit: No Status: Chronic Assessment and plan: per hx. Cont home Levothyroxine. 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 Cont home BB at lower dose due to hypotension. Monitor on tele (5) BRBPR (bright red blood per rectum) Current Visit: Yes Status: Acute Assessment and plan: Pt reports large amount of BRBPR with occasional clots. Plan for colonoscopy tomorrow. Clear liquid diet today, no red or purple. NPO at midnight. If unable tolerate NuLytely please use MiraLAX prep. If not clear by 6 AM, give 2 tap water enemas. (6) DVT prophylaxis Current Visit: No Status: Acute Assessment and plan: SCD - Subjective Interval history: Seen and came in at bedside. Says she feel better; says she is hungry and wants to eat. Denies further vertigo, says loose stool is improved as well as blood in stool. No CP or SOB - Constitutional Vitals: Temp Pulse Resp BP Pulse Ox 98.4 F 99 18 119/77 92 09/27/17 11:29 09/27/17 11:29 09/27/17 11:29 09/27/17 11:29 09/27/17 11:29 General appearance: Present: A&O X 3, pleasant, no acute distress - Head Head exam: Present: atraumatic, normocephalic - Eye Eye exam: Present: PERRL, conjuntiva pink, sclera anicteric Pupils: Present: PERRL - Neck Neck exam general surgery: Present: supple, trachea midline. Absent: lymphadenopathy - Respiratory Respiratory exam: Present: CTAB. Absent: accessory muscle use, rales, rhonchi, wheezes - Cardiovascular Cardiovascular exam: Present: RRR, +S1, +S2. Absent: diastolic murmur, gallop, rubs, systolic murmur - GI/Abdominal GI/Abdominal exam: Present: normal bowel sounds, soft, no peritoneal signs. Absent: distended, tenderness - Extremities Exam Extremities exam: Present: warm, radial pulses palpable and symmetrical. Absent : calf tenderness, cyanotic, pedal edema - Neurological Exam Neurological exam: Present: CN II-XII intact, oriented X3, no focal deficits. Absent: pronater drift, facial droop, speech deficit - Skin Skin exam: Present: dry, intact Internal Medicine: Result - Labs CBC & Chem 7: 09/26/17 08:52 09/25/17 03:34 - Impressions Impressions Brain MRI 09/25/17 08:02 IMPRESSION: No acute intracranial abnormality. Moderate duque sinus disease. D/ / 09/25/2017 10:08:37 Lenny Rhodes MD / carlos Interpreting Provider: Lenny Rhodes MD Consult Discharge Plan - Plan Referrals: Erin Sumner DO [Primary Care Provider] -
--- NOTE | 2017-09-27 15:25 | Electrocardiograph Report ---
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
[2017-09-27] MEDS ORDERED: *HR* Midazolam HCl 5 MG/5 ML VIAL IVP ONE (16:54)
[2017-09-27] MEDS ORDERED: *HR* FentaNYL (PF) 100 MCG/2 ML VIAL ONE (16:55)
--- NOTE | 2017-09-27 17:08 | Anesthesia Evaluation PreOp ---
Date of Encounter: 09/27/17 Time of Encounter: 17:06 - Past History Planned Operation: EGD/Colonoscopy Cardiac History: HTN, Hyperlipidemia, Arrhythmia (WPW syndrome) Pulmonary History: Asthma ENGINEER SYSTEMS History: Denies Any Significant HX Other Medical History: Thyroid (Hypothyroid), GERD Anesthesia History: No Prior Anesthetic Complications, Past Anesthesia (BOY, cardiac Ablation, c/s) : No Alcohol Use: none Drug use: none Medications and Allergies Aspirin [Lo-Dose Aspirin EC] 81 mg PO DAILY 05/04/17 [History] Dapsone 100 mg PO DAILY 05/04/17 [History] Levothyroxine Sodium [Levoxyl] 125 mcg PO DAILY 05/04/17 [History] Metoprolol [Lopressor] 25 mg PO BID #60 tab 05/07/17 [Rx] Fluocinonide 1 appl TP DAILY 08/05/17 [History] Fluticasone Propionate Nasal [Flonase] 1 spr NS BID PRN 08/05/17 [History] Lisinopril 2.5 mg PO DAILY 08/05/17 [History] Simvastatin [Zocor] 10 mg PO HS 08/05/17 [History] Prilosec Otc 20.6 mg PO DAILY 09/24/17 [History] 3 Allergy/AdvReac Type Severity Reaction Status Date / Time Penicillins Allergy Swelling Verified 07/11/16 04:38 of Lip/Tongue/Throat Sulfa (Sulfonamide Allergy Hives Verified 07/11/16 04:38 Antibiotics) - Meds/Allergy Pre-op Review Medications Reviewed: Yes Allergies Reviewed: Yes Beta Blockers on Current Med List: No Anesthesia Results - Labs 09/26/17 08:52 09/25/17 03:34 Echo with Saline Contrast Name: Vivian Colunga Date of Study: 09/25/2017 EV/EV echocardiogram Impressions: LVEF 60-65%. Normal right ventricular structure and function. No significant valvular dysfunction. No pulmonary hypertension. No PFO with saline contrast injection. Date of Study: 05/07/2017 Date: 1960 Ht: LEFT HEART CATH Indications: Abnormal Test - Stress, chest pain Impressions: There is mild two vessel coronary artery disease. The left ventricle is normal and has normal contractility EF 55% Mild aortic stenosis Anesthesia Exam O2 Sat Weight 98.4 kg O2 Sat by Pulse Oximetry 94 O2 Sat by Pulse Oximetry 92 O2 Sat by Pulse Oximetry 93 O2 Sat by Pulse Oximetry 92 O2 Sat by Pulse Oximetry 91 O2 Sat by Pulse Oximetry 95 Vital Signs Temp Pulse Resp BP Pulse Ox 98.3 F 86 18 118/80 97 09/24/17 14:14 09/24/17 14:14 09/24/17 14:14 09/24/17 14:14 09/24/17 14:14 - HEENT Pupil (Motor): Pupils equal, EOMI Mallampati: III Teeth: Edentulous Oral Opening: Greater than 3 - ENGINEER SYSTEMS LOC: Oriented ENGINEER SYSTEMS Motor: Normal RUE, Normal LUE, Normal RLE, Normal LLE, Normal Face [employer]ER SYSTEM[employer] Sensory: Normal: RUE, LUE, RLE, LLE, Face - Cardiac Rhythm: Regular Murmur: None JVD: No Carotid Bruit: No - Pulmonary Breath Sounds: bilateral Clear Respiratory Effort: Symmetrical Anesthesia Assess/Plan ASA Score: 3 Modified Richards Scale for Level of Consciousness: Cooperative, oriented, and tranquil Autologous Blood: Yes Monitoring Plan: Standard Monitors Recovery Plan: Other
[2017-09-27] MEDS ORDERED: Lidocaine -MPF 2% 2 ML VIAL ONE (17:30)
[2017-09-27] MEDS ORDERED: Propofol 500 MG/50 ML INFUS..BTL ONE (17:30)
[2017-09-27] MEDS ORDERED: Tetracaine/Benzocaine/Butamben 200MG/SPRAY (100SPY/BOT) MM ONE (17:32)
[2017-09-28] MEDS: *HR* Enoxaparin 40 MG/0.4 ML SYRINGE SQ SCH (06:12)
[2017-09-28] MEDS: Pantoprazole 40 MG VIAL IVP SCH (06:12)
[2017-09-28] MEDS ORDERED: Saline Nasal Spray 44 ML BOTTLE NS PRN (08:07)
[2017-09-28] MEDS: Aspirin Enteric Coated 81 MG Tablet PO SCH (08:57)
--- NOTE | 2017-09-28 11:12 | Discharge Summary ---
Date of Encounter: 09/28/17 Time of Encounter: 11:11 - Discharge Diagnosis (1) Noninfective gastroenteritis and colitis Priority: Primary Status: Acute Comments: reported large amount of BRBPR with occasional clots while inpatient. 09/27/17 EGD unremarkable, C-scope with sigmoid colitis. EGD report noted non-infective gastroenteritis and colitis. Loose stool resolved at time of discharge. No ABD pain and tolerating regular diet. Will need to follow-up with GI outpatient. Cont PPI Qualifiers: Qualified Code(s): K52.9 - Noninfective gastroenteritis and colitis, unspecified (2) Vertigo Priority: Primary Status: Resolved Comments: presented with sensation of room spinning and ataxia on day of presentation. Head CT nonacute, Brain MRI without acute abnormality. TTE with EF 60%, no valvular dysfunction. Suspect sx's secondary to hypotension as BP soft/ borderline. Symptoms worse when going from a lying/sitting position to standing. Sx's improved with decreasing home BB and normotensive BP. No sx recurrence as of 09/26/2017. Neurology followed. (3) Hypertension Priority: Primary Status: Chronic Comments: per hx. On BB, ERROL at home. BP has been soft/borderline with SBP is in low 100s to 90s. Suspect hypotension possibly contributing to above vertigo. BP improved/stabilized. Cont home BB at lower dose Qualifiers: Hypertension type: essential hypertension Qualified Code(s): I10 - Essential (primary) hypertension (4) Hypothyroidism Priority: Secondary Status: Chronic Comments: per hx. Cont home Levothyroxine. Qualifiers: Hypothyroidism type: unspecified Qualified Code(s): E03.9 - Hypothyroidism , unspecified (5) WPW (Trlog-Kgwzuyyxg-Lsjuy syndrome) Priority: Secondary Status: Chronic Comments: per hx. 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 Cont home BB at lower dose due to hypotension. - Discharge Medications Prescriptions: Metoprolol [Lopressor] 12.5 mg PO BID #30 tablet Omeprazole Magnesium [Prilosec Otc] 40 mg PO DAILY #60 tablet.dr Home Medications: Aspirin [Lo-Dose Aspirin EC] 81 mg PO DAILY 05/04/17 [History] Dapsone 100 mg PO DAILY 05/04/17 [History] Levothyroxine Sodium [Levoxyl] 125 mcg PO DAILY 05/04/17 [History] Fluocinonide 1 appl TP DAILY 11/19/17 [History] Fluticasone Propionate Nasal [Flonase] 1 spr NS BID PRN 08/05/17 [History] Lisinopril 2.5 mg PO DAILY 08/05/17 [History] Simvastatin [Zocor] 10 mg PO HS 08/05/17 [History] Metoprolol [Lopressor] 12.5 mg PO BID #30 tablet 09/28/17 [Rx] Omeprazole Magnesium [Prilosec Otc] 40 mg PO DAILY #60 tablet. 09/28/17 [Rx] Allergies/Adverse Reactions: 3 Allergy/AdvReac Type Severity Reaction Status Date / Time Penicillins Allergy Swelling Verified 07/11/16 04:38 of Lip/Tongue/Throat Sulfa (Sulfonamide Allergy Hives Verified 07/11/16 04:38 Antibiotics) Procedures/tests Complete & Pending: Procedures Performed prior 72 hours Category Date Time Status EKG [ECG 12 lead ECG] [ECG] Routine Y 09/26/17 19:54 Completed EV echocardiogram Routine Y 09/25/17 22:37 Completed Date of admission: 09/24/17 18:46 Primary care physician: Erin Sumner DO Consults: 09/25/17 18:52 Consult to Gastroenterology [CONS] Routine Consulting Provider: Gastroenterology Hannah Reason for Consult: Blood in stool Call Completed: No Discharging clinician: Zoraida Robert Anticipated date of discharge: 09/28/17 - Patient Status Disposition: Home, Self-Care Condition: Good Functional capacity at discharge: independent ambulation Overall status at discharge: patient is back to baseline - Discharge Instructions Instructions: Sinusitis (GEN), Gastroenteritis (DC) Follow Up With: Erin Sumner DO [Primary Care Provider] - Felicia Pascual MD [Partnered Physician] - Additional Instructions: Please follow-up with your primary care physician within one week. Please follow up with GI; and appointment was requested for you. Please call Dr. Pascual's office if you are not contacted within 2 weeks. - Diet and Activity Activity: increase activity as tolerated Diet: advance to your usual diet Interval History: Seen and examined at bedside, patient says she feels much better like discharge home today. Denies abdominal pain, no further loose stool. No bloody stool. She is tolerating regular diet. No further lightheadedness, dizziness or vertigo. She is aware of need to follow-up with GI. Hospital course: See assessment and plan for hospital course - Time Spent with Patient Total time spent providing and/or coordinating discharge services: - Constitutional Vitals: Temp Pulse Resp BP Pulse Ox 98.5 F 95 18 114/63 91 09/28/17 07:28 09/28/17 07:28 09/28/17 07:28 09/28/17 07:28 09/28/17 07:28 General appearance: Present: A&O X 3, pleasant, no acute distress - Head Head exam: Present: atraumatic, normocephalic - Eye Eye exam: Present: PERRL, conjuntiva pink, sclera anicteric Pupils: Present: PERRL - Neck Neck exam general surgery: Present: supple, trachea midline. Absent: lymphadenopathy - Respiratory Respiratory exam: Present: CTAB. Absent: accessory muscle use, rales, rhonchi, wheezes - Cardiovascular Cardiovascular exam: Present: RRR, +S1, +S2. Absent: diastolic murmur, gallop, rubs, systolic murmur - GI/Abdominal GI/Abdominal exam: Present: normal bowel sounds, soft, no peritoneal signs. Absent: distended, tenderness - Extremities Exam Extremities exam: Present: warm, radial pulses palpable and symmetrical. Absent : calf tenderness, cyanotic, pedal edema - Neurological Exam Neurological exam: Present: CN II-XII intact, oriented X3, no focal deficits. Absent: pronater drift, facial droop, speech deficit - Skin Skin exam: Present: dry, intact
[2017-09-28 11:24] VITALS: BP 161/75
== END 2017-09-28 13:35 | disposition home or self-care (01) ==
LOC: EMEROO 14:13 → 3BNU 14:13
PROVIDERS: ADMIT Registered Nurse; ATTEND Registered Nurse
PROC: ENDOEBX (2017-09-27 17:00)